=== PATIENT | male | born 1975 | race Caucasian/White ===

== ENCOUNTER 2018-11-25 05:48 | Inpatient (IN) ==
[2018-11-25] MEDS ORDERED: Morphine Sulfate Inj 8 MG/ML Vial IV.PUSH ONE (06:01)
[2018-11-25] MEDS ORDERED: Sod Chloride 0.9% Inj 1,000 ML IV.SIG ONE (06:01)
--- NOTE | 2018-11-25 06:09 | ED ---
HPI General Chief Complaint: Abdominal Pain Stated Complaint: Medical Time Seen by Provider: 11/25/18 05:57 Source: patient Mode of arrival: ambulatory Limitations: no limitations History of Present Illness HPI narrative: 43 yo M c/o abdominal pain for a few hours. pt has a hx of UC s/ p partial colectomy from 20 years prior. pt reports familiarity with current symptoms, essentially a partial bowel obstruction. pt believe potato skin ingestion provoked pain. varying from low residue diet provokes abdominal pain. + Flatus. No BM. No vomiting here. Pt reports typically IVF, nausea medication and pain medication help symptoms resolve. Pt reports he is very familiar with these episodes. Related Data Home Medications Medication Instructions Recorded Confirmed No Known Home Medications 11/25/18 11/25/18 Allergies Allergy/AdvReac Type Severity Reaction Status Date / Time No Known Allergies Allergy Verified 11/25/18 05:58 Review of Systems ROS: all other systems reviewed are negative [facility] Medical History Medical History Ulcerative colitis (Acute) Surgical History Surgical History Hx of colectomy (Acute) Hx of shoulder surgery (Acute) Social History Social History Substance History: No History of Abuse Smoking Status: Former smoker How Often Do You Have a Drink Containing Alcohol: 2 to 4 times a month [facility] within the Last 8 Weeks: No Recent Out of Country Travel within the Last 8 Weeks: No Immunization History Tetanus Immunization: Unsure Exam Narrative Exam Narrative: GENERAL: 43 yo M, WNWD, pleasant, NAD SKIN: Focused skin assessment warm/dry. HEAD: Atraumatic. Normocephalic. EYES: Pupils equal and round. No scleral icterus. No injection or drainage. ENT: No nasal bleeding or discharge. Mucous membranes pink and moist. NECK: Trachea midline. No JVD. CARDIOVASCULAR: Regular rate and rhythm. No murmur appreciated. RESPIRATORY: No accessory muscle use. Clear to auscultation. Breath sounds equal bilaterally. GASTROINTESTINAL: Soft. Minimal generalized TTP. MUSCULOSKELETAL: No obvious deformities. No clubbing. No cyanosis. No edema. NEUROLOGICAL: Awake and alert. No obvious cranial nerve deficits. Motor grossly within normal limits. Normal speech. PSYCHIATRIC: Appropriate mood and affect; insight and judgment normal. Course Initial Documented Vital Signs Temperature 98.7 F 11/25/18 05:51 Pulse Rate 82 11/25/18 05:51 Respiratory Rate 18 11/25/18 05:51 Blood Pressure 146/63 H 11/25/18 05:51 Pulse Oximetry 99 11/25/18 05:51 Last Documented Vital Signs Temperature 98.7 F 11/25/18 05:51 Pulse Rate 82 11/25/18 05:51 Respiratory Rate 18 11/25/18 05:51 Blood Pressure 146/63 H 11/25/18 05:51 Pulse Oximetry 99 11/25/18 05:51 Sign Out Sign Out Data: Patient Sign Out occurred on 11/25/18 at 07:22. Patient's care was discussed, and care was transferred from Dale Weiss MD to Brianna Pacheco MD. Sign Out Comment: Pt has hx UC with partial colectomy 20 years ago. 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 Pt arrives with abdominal pain and no BM. + Flatus. Pt reports IVF, pain medications and nausea medications typically work. Pt reports a few hours sometimes is enough sometimes longer. No vomiting today. Bloodwork sent upon arrival, NS, morphine and zofran started. Please reassess with disposition pending CT. Last updated by Dale Weiss MD at 11/25/18 06:56 Post-Handoff Eval: To me at 7 AM awaiting CAT scan and lab work. Lab work was fairly unremarkable with CAT scan is showing signs of bowel obstruction as well as fistula formation and questionable malignancy. At this point, case is discussed with family practice resident service for admission for further evaluation and treatment. Patient does not have any local doctors. Medical Decision Making MDM Narrative Medical Screen Exam Complete: Yes Emergency Medical Condition: Yes Lab Data Lab results reviewed: Yes I reviewed the patient's lab results. Result diagrams: 11/25/18 06:49 11/25/18 06:49 Lab Results 11/25/18 11/25/18 11/25/18 Range/Units 06:49 06:49 07:11 WBC 8.9 (4.0-11.0) th/mm3 RBC 4.29 L (4.50-5.90) mil/mm3 Hgb 13.4 (13.0-17.0) gm/dL Hct 39.3 (39.0-51.0) % MCV 91.5 (80.0-100.0) fL MCH 31.2 (27.0-34.0) pg MCHC 34.1 (32.0-36.0) % RDW 13.4 (11.6-17.2) % Plt Count 291 (150-450) th/mm3 MPV 7.7 (7.0-11.0) fL Neut % (Auto) 81.9 H (16.0-70.0) % Lymph % (Auto) 6.9 L (9.0-44.0) % Barren % (Auto) 11.0 H (0.0-8.0) % Eos % (Auto) 0.0 (0.0-4.0) % Baso % (Auto) 0.2 (0.0-2.0) % Neut # (Auto) 7.3 (1.8-7.7) th/mm3 Lymph # (Auto) 0.6 L (1.0-4.8) th/mm3 Barren # (Auto) 1.0 H (0.0-0.9) th/mm3 Eos # (Auto) 0.0 (0.0-0.4) th/mm3 Baso # (Auto) 0.0 (0.0-0.2) th/mm3 WBC Differential . Differential Comment Auto diff final Sodium 139 (136-145) meq/L Potassium 4.4 (3.5-5.1) meq/L Chloride 107 (98-107) meq/L Carbon Dioxide 24.6 (21.0-32.0) meq/L Anion Gap 7 (5-15) meq/L BUN 12 (7-18) mg/dL Creatinine 1.04 (0.60-1.30) mg/dL Estimated GFR 78 L (>89) mL/min Random Glucose 70 L (74-106) mg/dL Calcium 8.8 (8.5-10.1) mg/dL Magnesium 2.1 (1.5-2.5) mg/dL Total Bilirubin 0.8 (0.2-1.0) mg/dL AST 59 H (15-37) U/L ALT 57 (12-78) U/L Alkaline Phosphatase 48 (45-117) U/L Total Protein 7.6 (6.4-8.2) g/dL Albumin 3.6 (3.4-5.0) g/dL Lipase 86 (73-393) U/L Urine Color Yellow (Yellw/Straw) Urine Clarity Clear (Clear) Urine pH 5.0 (5.0-8.5) Ur Specific [place] 1.012 (1.002-1.035) Urine Protein Negative (Neg-Trace) mg/dL Urine Glucose (UA) Negative (Negative) mg/dL Urine Ketones Negative (Negative) mg/dL Urine Occult Blood Negative (Negative) Urine Nitrate Negative (Negative) Urine Bilirubin Negative (Negative) Urine Urobilinogen Less than 2 (Less than 2) mg/dL Ur Leukocyte Esterase Negative (Negative) Urine RBC Less than 1 (0-3) /hpf Urine WBC 1 (0-5) /hpf Hyaline Casts 4 (0-3) /lpf Urine Mucus Few H (Occasional) /lpf Micro UA Comment Culture not ind Ur Microscopic Review Not Reportable Urine Culture Comments Culture not ind Imaging Data Attestation: I personally reviewed and interpreted this imaging study as follows : Radiologist's impression: Abdomen/Pelvis CT 11/25/18 06:56 CONCLUSION: 1. 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 There is abnormal dilation of the distal ileum extending to the level of circumferential soft tissue thickening. Findings are concerning for possible malignancy within the region of the rectum. Small lymph nodes are seen within the mesentery. 2. Benign-appearing hepatic hemangiomas. Discharge Plan Discharge Disposition Patient Disposition: ED Admit(ED Internal Use Only) Discharge Condition Condition: Stable Discharge Details Anticipated Discharge Date: 11/25/18 Diagnosis: Bowel obstruction Physicians Team ED Provider: Brianna Pacheco Primary Care Provider: Primary Care PhysiciFreda Rxs /Orders / Referrals /Forms Prescriptions: No Action No Known Home Medications RF: 0 Status ED Status: With Doctor
[2018-11-25 07:02] LABS: Baso % (Auto) 0.2 % (0.0-2.0); Hematocrit 39.3 % (39.0-51.0); Hemoglobin 13.4 gm/dL (13.0-17.0); Lymph # (Auto) 0.6 th/mm3 (1.0-4.8); Lymph % (Auto) 6.9 % (9.0-44.0); Mean Corpuscular HGB Conc 34.1 % (32.0-36.0); Mean Corpuscular Hemoglobin 31.2 pg (27.0-34.0); Mean Corpuscular Volume 91.5 fL (80.0-100.0); Mean Platelet Volume 7.7 fL (7.0-11.0); Neut # (Auto) 7.3 th/mm3 (1.8-7.7); Neut % (Auto) 81.9 % (16.0-70.0); Platelet Count 291 th/mm3 (150-450); Red Blood Count 4.29 mil/mm3 (4.50-5.90); Red Cell Distribution Width 13.4 % (11.6-17.2); White Blood Count 8.9 th/mm3 (4.0-11.0)
[2018-11-25 07:22] LABS: Alkaline Phosphatase 48 U/L (45-117); Total Protein 7.6 g/dL (6.4-8.2)
[2018-11-25 07:23] LABS: Bilirubin,Urine Negative (Negative); Clarity,Urine Clear (Clear); Color,Urine Yellow (Yellw/Straw); Glucose,Urine (UA) Negative (Negative); Hyaline Casts,Urine 4 /lpf (0-3); Leukocyte Esterase,Urine Negative (Negative); Mucus,Urine Few /lpf (Occasional); Nitrite,Urine Negative (Negative); Specific Gravity,Urine 1.012 (1.002-1.035)
[2018-11-25 07:23] LABS: Alanine Aminotransferase 57 U/L (12-78); Albumin 3.6 g/dL (3.4-5.0); Anion Gap 7 meq/L (5-15); Aspartate Aminotransferase 59 U/L (15-37); Blood Urea Nitrogen 12 mg/dL (7-18); Calcium 8.8 mg/dL (8.5-10.1); Carbon Dioxide 24.6 meq/L (21.0-32.0); Chloride 107 meq/L (98-107); Glomerular Filtration Rate 78 mL/min (>89); Glucose,Random 70 mg/dL (74-106); Lipase 86 U/L (73-393); Magnesium 2.1 mg/dL (1.5-2.5); Potassium 4.4 meq/L (3.5-5.1); Sodium 139 meq/L (136-145)
--- NOTE | 2018-11-25 07:56 | CT ---
EXAM DATE: 11/25/2018 7:34 AM EST AGE/SEX: 43 years / Male INDICATIONS: Diffuse abdominal pain and constipation. Evaluate for obstruction. CLINICAL DATA: This is the patient's initial encounter. Patient reports that signs and symptoms have been present for 2 days and indicates a pain score of 7/10. MEDICAL/SURGICAL HISTORY: Ulcerative colitis. Colon resection. ORAL CONTRAST: No oral contrast ingested. RADIATION DOSE: 5.06 CTDI (mGy) COMPARISON: No prior exams available for comparison. TECHNIQUE: Multiple contiguous axial images were obtained through the abdomen and pelvis following b olus infusion of 97 ml Omnipaque 350 (iohexol) nonionic water-soluble contrast as a single exam dos e. No oral contrast ingested. Using automated exposure control and adjustment of the mA and/or kV ac cording to patient size, radiation dose was kept as low as reasonably achievable to obtain optimal di agnostic quality images. DICOM format image data is available electronically for review and comparis on. FINDINGS: Lower Lungs: The visualized lower lungs are clear. Liver: There are 2 low attenuating lesions identified within the liver, right lobe which demonstrate peripheral discontinuous enhancement consistent with benign hemangiomas. The liver is otherwise ian l in appearance and enhancement. Spleen: Homogeneous density without enlargement. Pancreas: Unremarkable without mass or calcification. Kidneys: Normal in size and shape. No evidence of mass or hydronephrosis. Adrenal Glands: Unremarkable. Aorta: The aorta and proximal iliac vessels are grossly unremarkable without aneurysmal dilation. Bowel/Mesentery: The patient is status post colonic resection with a suture anastomotic line involvi ng the distal portion of the small bowel at the level of the rectum. In this location there is circum ferential wall thickening measuring up to 2.3 cm in size with fluid filled and distended small bowel extending from this distal location to the upper abdomen. The jejunum and proximal ileum demonstrates normal caliber. There is a small focus of air identified within soft tissue attenuation extending fr om the level of the anus sphincter into the right ischio rectal fossa. Abdominal Wall: Intact. Retroperitoneum: There are mildly enlarged lymph nodes identified within the mesenteric fat Bladder: Contours are smooth. Reproductive Organs: No abnormal masses or calcifications seen. Inguinal: The inguinal region is unremarkable without evidence of adenopathy. Bony Structures: Unremarkable. CONCLUSION: 1. The patient is status post colon resection with abnormal circumferential soft tissue thickening i dentified within the region of the rectal sphincter and a small right-sided perirectal fistula extend ing into the right ischiorectal fossa. There is abnormal dilation of the distal ileum extending to th e level of circumferential soft tissue thickening. Findings are concerning for possible malignancy wi thin the region of the rectum. Small lymph nodes are seen within the mesentery. 2. Benign-appearing hepatic hemangiomas. Electronically signed by: Marge Lambert MD Board Certified Radiologist 11/25/2018 7:55 AM EST
[2018-11-25] MEDS ORDERED: Morphine Inj 4 MG/ML Vial IV.PUSH ONE (08:06)
--- NOTE | 2018-11-25 08:40 | P.HPFP ---
History of Present Illness Primary Care Physician: No Primary Care Physician <Ascencion Larkin Lenin - 11/26/18 18:57> No Primary Care Physician <Hazel Cueto - 11/25/18 08:40> History of Present Illness: 43 year old male with PMH UC presents for constipation since yesterday at noon and then started having abdominal pain last night at 9 pm. The ab pain was diffuse. Rates the pain a 10/10, stabbing pain, colicky pain. Did not try anything to relieve the pain. This pain has happened in the past, multiple times, last one about a month and a half ago and it was bowel obstruction. Has had 3 bowel obstructions in the past since he had his colon surgery in 1997 (partial colectomy). He also reports vomiting x2 at around 4 AM, and that's what prompted him to go to the hospital. Confirms hematemesis. Last flatus yesterday but has not had any episodes of flatus since being in the ED at 5 am today. Denies any changes in stool caliber or color before this event. Does not see a GI doctor because he is self pay. Dr Resendez in [place] did his surgery in 1997 and he moved down to [facility] in 2016. Has no PCP or GI follow up since his surgery. Received a dose of morphine in the ED which has helped the pain. PMH: UC PSH: Shoulder surgery. partial colectomy 1997 (does not have colostomy bag). A: NKDA Meds: None PSH: Lives in an apartment with his nephew. Denies smoking cigarettes currently but used to smoke years ago. Occasional alcohol use (once every 2-3 weeks). Denies any drugs use. Denies any changes in diet. Flew to [place] a couple a months ago and flew to [place] a month ago. Currently not sexually active. No history of HIV/Hep C/ STDs. No PCP. Fam Hx: Nephew has Chrons disease. ROS: Denies CP. Confirms SOB before the ambulance arrived but has resolved at this moment. Confirms night sweats for years where he is drenching his bed. Denies any weight loss. Denies any fevers, leg pain,dysuria. Last Colonoscopy years ago. <Hazel Cueto - 11/25/18 09:33> - Diagnosis (1) Abdominal pain (2) Ulcerative colitis (3) Hematemesis with nausea (4) DVT prophylaxis (5) Nutrition, metabolism, and development symptoms <Ascencion Larkin 11/26/18 18:57> (1) Abdominal pain (2) Ulcerative colitis (3) Hematemesis with nausea (4) Constipation (5) DVT prophylaxis (6) Nutrition, metabolism, and development symptoms <Hazel Cueto 11/25/18 09:34> Inpatient Certification: I certify that the inpatient services were ordered in accordance with Medicare regulations governing the order. This includes certification that hospital inpatient services are reasonable and necessary and in the case of services not specified as inpatient-only under 42 CFR 419.22(n), that they are appropriately provided as inpatient services in accordance to with the 2-midnight benchmark under 43 CFR 412.3(e) <Ascencion Larkin 11/26/18 18:57> I certify that the inpatient services were ordered in accordance with Medicare regulations governing the order. This includes certification that hospital inpatient services are reasonable and necessary and in the case of services not specified as inpatient-only under 42 CFR 419.22(n), that they are appropriately provided as inpatient services in accordance to with the 2-midnight benchmark under 43 CFR 412.3(e) <Hazel Cueto 11/25/18 08:40> Review of Systems All other systems reviewed negative except as stated in HPI <Hazel Cueto 11/25/18 09:33> PMFSH - History History Provided By: Patient, [employer] / EMT <Hazel Cueto 11/25/18 08 :40> - Medical History Medical History: Medical History (Last Updated 11/25/18 @ 05:56 by Keith Carreno) Ulcerative colitis <Ascencion Larkin 11/26/18 18:57> Medical History (Last Updated 11/25/18 @ 05:56 by Keith Carreno) Ulcerative colitis <Hazel Cueto 11/25/18 08:40> - Surgical History Surgical History: Surgical History (Last Updated 11/25/18 @ 05:56 by Keith Carreno) Hx of colectomy Hx of shoulder surgery <Ascencion Larkin 11/26/18 18:57> Surgical History (Last Updated 11/25/18 @ 05:56 by Keith Carreno) Hx of colectomy Hx of shoulder surgery <Hazel Cueto 11/25/18 08:40> - Tobacco History Smoking Status: Former smoker <Sasha DavisonHazel 11/25/18 08:40> - Alcohol History How Often Do You Have a Drink Containing Alcohol: 2 to 4 times a month <Hazel Cueto 11/25/18 08:40> - Substance Use History Substance History: No History of Abuse <Sasha DavisonHazel - 11/25/18 08:40> - Travel History Recent Travel in the [facility] Within the Last 8 Weeks: No <Hazel Cueto 11/01 08:40> Recent Travel Out of the Country Within the Last 8 Weeks: No <Sasha Davison Hazel - 11/25/18 08:40> - Immunization History Tetanus Immunization: Unsure <Hazel Cueto 11/25/18 08:40> Medications and Allergies Allergies Allergy/AdvReac Type Severity Reaction Status Date / Time No Known Allergies Allergy Verified 11/25/18 05:58 <Ascencion Larkin 11/26/18 18:57> Home Medications Medication Instructions Recorded Confirmed Type No Known Home Medications 11/25/18 11/25/18 History <Ascencion Larkin 11/26/18 18:57> Active Medications: Active Medications Acetaminophen (Tylenol) 650 mg PO Q4H PRN PRN Reason: Temp > 100.4 Acetaminophen (Tylenol) 650 mg PO Q6HR PRN PRN Reason: PAIN SCALE 1 TO 2 Al Hydroxide/Mg Hydroxide (Milk Of Magnesia Liq) 30 ml PO Q12H PRN PRN Reason: Mild Constipation Bisacodyl (Dulcolax Supp) 10 mg RECTAL DAILY PRN PRN Reason: SEVERE CONSITIPATION Last Admin: 11/26/18 07:05 Dose: 10 mg Sodium Chloride (Ns Inj) 1,000 mls @ 112 mls/hr IV.CONT .Q8H56M ROJELIO Last Infusion: 11/26/18 17:54 Dose: 0 mls/hr Lactulose (Lactulose Liq) 30 ml PO DAILY PRN PRN Reason: SEVERE CONSITIPATION Last Admin: 11/26/18 07:05 Dose: 30 ml Methylprednisolone Sodium Succinate (Solumedrol Inj) 40 mg IV.PUSH DAILY [facility] Last Admin: 11/26/18 12:58 Dose: 40 mg Morphine Sulfate (Morphine Inj) 2 mg IV.PUSH Q3H PRN PRN Reason: PAIN 6-10;IF UNABLE TO TAKE PO Last Admin: 11/26/18 17:10 Dose: 2 mg Morphine Sulfate (Morphine Inj) 1 mg IV.PUSH Q3H PRN PRN Reason: Pain scale 3-5 Morphine Sulfate (Morphine Inj) 1 mg IV.PUSH Q3H PRN PRN Reason: BREAKTHROUGH PAIN Naloxone HCl (Narcan Inj) 0.4 mg IV.PUSH UNSCH PRN PRN Reason: SEE LABEL COMMENTS Ondansetron HCl (Zofran Inj) 4 mg IV.PUSH Q6H PRN PRN Reason: NAUSEA OR VOMITING Senna/Docusate Sodium (Emelia-Colace) 1 tab PO BID [facility] Last Admin: 11/26/18 08:15 Dose: 1 tab Sennosides (Senokot) 17.2 mg PO Q12H PRN PRN Reason: Moderate Constipation Last Admin: 11/26/18 07:04 Dose: 17.2 mg Sodium Chloride (Ns Flush) 2 ml IV.FLUSH BID [facility] Last Admin: 11/26/18 08:14 Dose: Not Given Sodium Chloride (Ns Flush) 2 ml IV.FLUSH PRN PRN PRN Reason: FLUSH AFTER USING IV ACCESS <Ascencion Larkin - 11/26/18 18:57> Active Medications Sodium Chloride (Ns Flush) 2 ml IV.FLUSH PRN PRN PRN Reason: FLUSH AFTER USING IV ACCESS <Hazel Cueto - 11/25/18 08:40> Exam Vital signs: Vital Signs 11/25/18 19:20 11/25/18 23:24 11/26/18 08:00 Temperature 99.5 F 98.2 F 97.9 F Pulse Rate 69 75 72 Respiratory Rate 18 18 19 Blood Pressure 100/51 L 104/54 L 109/58 L Pulse Oximetry 100 98 100 11/26/18 10:04 11/26/18 12:00 11/26/18 13:00 Temperature 98.9 F Pulse Rate 87 Respiratory Rate 16 18 18 Blood Pressure 122/56 L Pulse Oximetry 97 11/26/18 16:00 11/26/18 17:12 Temperature 99.3 F Pulse Rate 90 Respiratory Rate 19 16 Blood Pressure 111/56 L Pulse Oximetry 97 Intake & Output 11/25/18 11/26/18 11/26/18 18:59 06:59 18:59 Intake Total 1000 / 1000 1000 / 1000 1000 / 1000 Balance 1000 / 1000 1000 / 1000 1000 / 1000 Weight 72.57 kg 67.4 kg Intake: IV 1000 / 1000 1000 / 1000 1000 / 1000 NS Inj 1,000 ML @ 112 mls/hr IV 1000 / 1000 1000 / 1000 .CONT .Q8H56M ROJELIO Rx#:[id number] NS Inj 1,000 ML @ Wide Open IV. 1000 / 1000 SIG BOLUS ONE Rx#:[id number] Other: # Voids 1 5 4 Date of Last Bowel Movement 11/23/18 11/25/18 11/26/18 # Bowel Movements 1 2 Weight On Admission 72.57 kg <Ascencion Larkin - 11/26/18 18:57> Vital Signs 11/25/18 05:51 Temperature 98.7 F Pulse Rate 82 Respiratory Rate 18 Blood Pressure 146/63 H Pulse Oximetry 99 Intake & Output 11/24/18 11/25/18 11/25/18 18:59 06:59 18:59 Weight 72.575 kg <Hazel Cueto - 11/25/18 08:40> Narrative: GENERAL: Middle-aged appearing male, lying comfortably in bed, no acute distress. SKIN: Warm and dry. HEAD: Normocephalic. EYES: No scleral icterus. No injection or drainage. NECK: Supple, trachea midline. No JVD or lymphadenopathy. CARDIOVASCULAR: Regular rate and rhythm without murmurs, gallops, or rubs. RESPIRATORY: Breath sounds equal bilaterally. No accessory muscle use. GASTROINTESTINAL: Abdomen soft, tenderness to palpation in all quadrants. Bowel sounds present in all quadrants. No dullness to percussion. MUSCULOSKELETAL: No cyanosis, or edema. BACK: Nontender without obvious deformity. No CVA tenderness. <Hazel Cueto - 11/25/18 09:03> Results - Labs Result diagrams: 11/26/18 05:03 11/26/18 05:03 <Ascencion Larkin - 11/26/18 18:57> Abnormal lab results 11/26/18 11/26/18 Range/Units 05:03 05:03 RBC 3.90 L (4.50-5.90) mil/mm3 Hgb 12.0 L (13.0-17.0) gm/dL Hct 36.3 L (39.0-51.0) % Neut % (Auto) 73.7 H (16.0-70.0) % Lymph % (Auto) 8.8 L (9.0-44.0) % [place] % (Auto) 16.4 H (0.0-8.0) % Lymph # (Auto) 0.6 L (1.0-4.8) th/mm3 [place] # (Auto) 1.1 H (0.0-0.9) th/mm3 Potassium 3.4 L D (3.5-5.1) meq/L Random Glucose 59 L (74-106) mg/dL Calcium 7.9 L D (8.5-10.1) mg/dL Total Bilirubin 1.4 H (0.2-1.0) mg/dL Alkaline Phosphatase 44 L (45-117) U/L Total Protein 6.2 L D (6.4-8.2) g/dL Albumin 2.9 L D (3.4-5.0) g/dL Short CBC 11/26/18 Range/Units 05:03 WBC 6.9 (4.0-11.0) th/mm3 Hgb 12.0 L (13.0-17.0) gm/dL Hct 36.3 L (39.0-51.0) % Plt Count 235 (150-450) th/mm3 [facility] 11/26/18 05:03 Sodium 140 Potassium 3.4 L D Chloride 106 Carbon Dioxide 24.3 BUN 8 Creatinine 0.87 Calcium 7.9 L D Liver Function 11/26/18 Range/Units 05:03 Total Bilirubin 1.4 H (0.2-1.0) mg/dL AST 30 (15-37) U/L ALT 35 (12-78) U/L Alkaline Phosphatase 44 L (45-117) U/L Albumin 2.9 L D (3.4-5.0) g/dL <Ascencion Larkin L - 11/26/18 18:57> Abnormal lab results 11/25/18 11/25/18 11/25/18 Range/Units 06:49 06:49 07:11 RBC 4.29 L (4.50-5.90) mil/mm3 Neut % (Auto) 81.9 H (16.0-70.0) % Lymph % (Auto) 6.9 L (9.0-44.0) % [place] % (Auto) 11.0 H (0.0-8.0) % Lymph # (Auto) 0.6 L (1.0-4.8) th/mm3 [place] # (Auto) 1.0 H (0.0-0.9) th/mm3 Estimated GFR 78 L (>89) mL/min Random Glucose 70 L (74-106) mg/dL AST 59 H (15-37) U/L Urine Mucus Few H (Occasional) /lpf Short CBC 11/25/18 Range/Units 06:49 WBC 8.9 (4.0-11.0) th/mm3 Hgb 13.4 (13.0-17.0) gm/dL Hct 39.3 (39.0-51.0) % Plt Count 291 (150-450) th/mm3 BMP 11/25/18 06:49 Sodium 139 Potassium 4.4 Chloride 107 Carbon Dioxide 24.6 BUN 12 Creatinine 1.04 Calcium 8.8 Liver Function 11/25/18 Range/Units 06:49 Total Bilirubin 0.8 (0.2-1.0) mg/dL AST 59 H (15-37) U/L ALT 57 (12-78) U/L Alkaline Phosphatase 48 (45-117) U/L Albumin 3.6 (3.4-5.0) g/dL Urine 11/25/18 Range/Units 07:11 Urine Color Yellow (Yellw/Straw) Urine Clarity Clear (Clear) Urine pH 5.0 (5.0-8.5) Ur Specific [place] 1.012 (1.002-1.035) Urine Protein Negative (Neg-Trace) mg/dL Urine Glucose (UA) Negative (Negative) mg/dL <Hazel Cueto - 11/25/18 08:40> - Imaging Impressions Abdomen/Pelvis CT 11/25/18 06:56 CONCLUSION: 1. 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 There is abnormal dilation of the distal ileum extending to the level of circumferential soft tissue thickening. Findings are concerning for possible malignancy within the region of the rectum. Small lymph nodes are seen within the mesentery. 2. Benign-appearing hepatic hemangiomas. <Eloisecristela SamanHazel - 11/25/18 08:40> Caprini VTE Risk Assessment Caprini VTE Risk Assessment: No/Low Risk (score <= 1) <Sasha DavisonHazel - 11/01 09:34> Caprini Risk Assessment Model: Point Value = 1 Point Value = 2 Point Value = 3 Point Value = 5 Age 41-60 Minor surgery BMI > 25 kg/m2 Swollen legs Varicose veins or History of unexplained or recurrent spontaneous Oral contraceptives or hormone replacement Sepsis (< 1 month) Serious lung disease, including pneumonia (< 1 month) Abnormal pulmonary function Acute myocardial infarction Congestive heart failure (< 1 month) History of inflammatory bowel disease Medical patient at bed rest Age 61-74 Arthroscopic surgery Major open surgery (> 45 min) Laparoscopic surgery (> 45 min) Malignancy Confined to bed (> 72 hours) Immobilizing plaster cast Central venous access Age >= 75 History of VTE Family history of VTE Factor V Leiden Prothrombin [id number] Lupus anticoagulant Anticardiolipin antibodies Elevated serum homocysteine Heparin-induced thrombocytopenia Other congenital or acquired thrombophilia Stroke (< 1 month) Elective arthroplasty Hip, pelvis, or leg fracture Acute spinal cord injury (< 1 month) <Ascencion Larkin - 11/26/18 18:57> Point Value = 1 Point Value = 2 Point Value = 3 Point Value = 5 Age 41-60 Minor surgery BMI > 25 kg/m2 Swollen legs Varicose veins or History of unexplained or recurrent spontaneous Oral contraceptives or hormone replacement Sepsis (< 1 month) Serious lung disease, including pneumonia (< 1 month) Abnormal pulmonary function Acute myocardial infarction Congestive heart failure (< 1 month) History of inflammatory bowel disease Medical patient at bed rest Age 61-74 Arthroscopic surgery Major open surgery (> 45 min) Laparoscopic surgery (> 45 min) Malignancy Confined to bed (> 72 hours) Immobilizing plaster cast Central venous access Age >= 75 History of VTE Family history of VTE Factor V Leiden Prothrombin [id number] Lupus anticoagulant Anticardiolipin antibodies Elevated serum homocysteine Heparin-induced thrombocytopenia Other congenital or acquired thrombophilia Stroke (< 1 month) Elective arthroplasty Hip, pelvis, or leg fracture Acute spinal cord injury (< 1 month) <Hazel Cueto - 11/25/18 08:40> Prophylaxis Regimen: Total Risk Factor Score Risk Level Prophylaxis Regimen 0-1 Low Early ambulation 2 Moderate Order ONE of the following: *Sequential Compression Device (SCD) *Heparin 5000 units SQ BID 3-4 Higher Order ONE of the following medications: *Heparin 5000 units SQ TID *Enoxaparin/Lovenox 40 mg SQ daily (WT < 150 kg, CrCl > 30 mL/min) *Enoxaparin/Lovenox 30 mg SQ daily (WT < 150 kg, CrCl > 10-29 mL/min) *Enoxaparin/Lovenox 30 mg SQ BID (WT < 150 kg, CrCl > 30 mL/min) AND/OR *Sequential Compression Device (SCD) 5 or more Highest Order ONE of the following medications: *Heparin 5000 units SQ TID (Preferred with Epidurals) *Enoxaparin/Lovenox 40 mg SQ daily (WT < 150 kg, CrCl > 30 mL/min) *Enoxaparin/Lovenox 30 mg SQ daily (WT < 150 kg, CrCl > 10-29 mL/min) *Enoxaparin/Lovenox 30 mg SQ BID (WT < 150 kg, CrCl > 30 mL/min) AND *Sequential Compression Device (SCD) <Ascencion Larkin - 11/26/18 18:57> Total Risk Factor Score Risk Level Prophylaxis Regimen 0-1 Low Early ambulation 2 Moderate Order ONE of the following: *Sequential Compression Device (SCD) *Heparin 5000 units SQ BID 3-4 Higher Order ONE of the following medications: *Heparin 5000 units SQ TID *Enoxaparin/Lovenox 40 mg SQ daily (WT < 150 kg, CrCl > 30 mL/min) *Enoxaparin/Lovenox 30 mg SQ daily (WT < 150 kg, CrCl > 10-29 mL/min) *Enoxaparin/Lovenox 30 mg SQ BID (WT < 150 kg, CrCl > 30 mL/min) AND/OR *Sequential Compression Device (SCD) 5 or more Highest Order ONE of the following medications: *Heparin 5000 units SQ TID (Preferred with Epidurals) *Enoxaparin/Lovenox 40 mg SQ daily (WT < 150 kg, CrCl > 30 mL/min) *Enoxaparin/Lovenox 30 mg SQ daily (WT < 150 kg, CrCl > 10-29 mL/min) *Enoxaparin/Lovenox 30 mg SQ BID (WT < 150 kg, CrCl > 30 mL/min) AND *Sequential Compression Device (SCD) <Eloisecristela Hazel Davison - 11/25/18 08:40> Assessment and Plan - Assessment (1) Abdominal pain Code(s): R10.9 - Unspecified abdominal pain Status: Acute (2) Ulcerative colitis Code(s): K51.90 - Ulcerative colitis, unspecified, without complications Status: Acute (3) Hematemesis with nausea Code(s): K92.0 - Hematemesis Status: Acute (4) DVT prophylaxis Status: Acute (5) Nutrition, metabolism, and development symptoms Code(s): R63.8 - Other symptoms and signs concerning food and fluid intake Status: Acute <TraeAscencion Lenin - 11/26/18 18:57> (1) Abdominal pain Code(s): R10.9 - Unspecified abdominal pain Status: Acute Plan: Patient with past medical history of ulcerative colitis status post partial colectomy in 1997 presents with 1 day of 10 out of 10 sharp, colicky, diffuse abdominal pain. History of multiple bowel obstructions x3. -No PCP or GI following. 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 Abnormal dilation of the distal ileum extending to the level of circumferential soft tissue thickening. Findings concerning for malignancy within the region of the rectum. -Hemoccult ordered. -GI consulted. Appreciate recommendations. -Oncology consulted. Appreciate recommendations -General surgery consulted. Appreciate recommendations. -Morphine pain scale and breakthrough. -Encouraged stool softeners. -Zofran for nausea vomiting. -CBC shows normal white count at 8.9 but high neutrophil predominant at 81.9. Vital signs stable. Continue to monitor in a.m. -UA unremarkable. (2) Ulcerative colitis Code(s): K51.90 - Ulcerative colitis, unspecified, without complications Status: Acute Plan: Currently not in any chronic medications. Gastroenterology consulted. Appreciate recommendations. (3) Hematemesis with nausea Code(s): K92.0 - Hematemesis Status: Acute Plan: Patient confirms hematemesis x2 overnight. No episodes since admission. Zofran every 4 for nausea and vomiting. Continue to monitor. Hemoglobin and hematocrit stable. Follow-up in a.m. (4) Constipation Code(s): K59.00 - Constipation, unspecified Status: Acute Plan: Encourage stool softeners. (5) DVT prophylaxis Status: Acute Plan: SCDs only. (6) Nutrition, metabolism, and development symptoms Code(s): R63.8 - Other symptoms and signs concerning food and fluid intake Status: Acute Plan: Fluids: Normal saline at 112 mils/hour. Electrolytes: Monitor and replete as needed. Diet: Currently n.p.o. <Hazel Cueto - 11/25/18 09:34> - Assessment and Plan Discussed Condition With: Dr. Ellis <Hazel Cueto - 11/25/18 09:32> - Attending Attestation The exam, history, and the medical decision-making described in the above note were completed with the assistance of the resident physician. I reviewed and agree with the findings presented. I attest that I had a [id number] encounter with the patient on the same day, and personally performed and documented my assessment and findings in the medical record. Patient with history of ulcerative colitis presenting with partial bowel obstruction. NG tube if needed, IV fluids, GI/surgery/oncology consultation (questionable mass around the rectum, although this could just be fistula related to his ulcerative colitis). Please see my documentation on the following day. <Ascencion Larkin - 11/26/18 18:57>
[2018-11-25] MEDS ORDERED: Naloxone Inj 0.4 MG/ML Vial IV.PUSH PRN (08:47)
[2018-11-25] MEDS ORDERED: Morphine Inj 4 MG/ML Vial IV.PUSH PRN ×3 (08:47→12:18)
[2018-11-25] MEDS ORDERED: Bisacodyl 10 MG Supp RECTAL PRN (08:47)
[2018-11-25] MEDS ORDERED: Acetaminophen 325 MG Tablet PO PRN ×2 (08:47)
[2018-11-25] MEDS: Morphine Inj 4 MG/ML Vial IV.PUSH SCH ×2 (09:15→12:15)
[2018-11-25] MEDS: Sod Chloride 0.9% Inj 1,000 ML IV.CONT SCH ×2 (09:49→18:26)
[2018-11-25] MEDS: Senna/Docusate Sodium 8.6/50 MG Tablet PO SCH ×2 (09:50→20:38)
[2018-11-25] MEDS: Morphine Inj 4 MG/ML Vial IV.PUSH PRN ×4 (10:25→21:23)
--- NOTE | 2018-11-25 14:27 | P.CONGI ---
History of Present Illness Consult date: 11/25/18 Consult reason: Bowel obstruction Chief complaint: Bowel obstruction History of Present Illness: This is a slim 43-year-old male who came to the hospital today 11/25/2018 with mid generalized abdominal pain which initiated yesterday around 12 noon. Patient states that he ate some potato skins and by 04 100 this morning he had nausea and vomiting and unrelieved abdominal pain according to patient and his record he has a history of ulcerative colitis since the age of 15 and is status post partial colectomy 20 years ago. Patient has had increased problems with small bowel obstructions more recently last hospital stay in [place] approximately 6 weeks ago. He states bowel obstruction relieved on its own and he was discharged approximately 12 hours later. Aggregating foods to patient's bowel obstruction has been broccoli, nuts, carrots, and now potato skins. Gastroenterology consult has been obtained to assist with patient's current symptoms and plan of care. Labs reviewed which show white count 8.9, hemoglobin 13.4, bilirubin 0.8, AST [address] scan shows dilated distal ileum, soft tissue thickening at the rectal sphincter and possible perirectal fistula, possibly rule out any malignancy. Patient denies any family history of colon cancer or any other bowel disease. No known EGD in the past, colonoscopy in the past but not recent. <Romelia Correa - Last Filed: 11/25/18 14:16> Review of Systems All other systems reviewed negative except as stated in HPI <Romelia Correa - Last Filed: 11/25/18 14:16> PMFSH - History History Provided By: Patient - Medical History Medical History: Medical History (Last Updated 11/25/18 @ 05:56 by Keith Carreno) Ulcerative colitis - Surgical History Surgical History: Surgical History (Last Updated 11/25/18 @ 05:56 by Keith Carreno) Hx of colectomy Hx of shoulder surgery - Tobacco History Second Hand Smoke Exposure: No Tobacco Use In Past 30 Days: No Smoking Status: Former smoker Tobacco Type: Cigarettes - Alcohol History How Often Do You Have a Drink Containing Alcohol: 2 to 4 times a month - Substance Use History Substance History: No History of Abuse - Travel History Recent Travel in the [place] Within the Last 8 Weeks: No Recent Travel Out of the Country Within the Last 8 Weeks: No - Immunization History Tetanus Immunization: Unsure Hx Influenza Vaccine This Season: No <Romelia Correa Alison - Last Filed: 11/25/18 14:16> - Medical History Medical History: Medical History (Last Updated 11/25/18 @ 05:56 by Keith Carreno) Ulcerative colitis - Surgical History Surgical History: Surgical History (Last Updated 11/25/18 @ 05:56 by Keith Carreno) Hx of colectomy Hx of shoulder surgery <Fidel Ang - Last Filed: 11/26/18 11:13> Medications and Allergies Active Medications: Active Medications Acetaminophen (Tylenol) 650 mg PO Q4H PRN PRN Reason: Temp > 100.4 Acetaminophen (Tylenol) 650 mg PO Q6HR PRN PRN Reason: PAIN SCALE 1 TO 2 Al Hydroxide/Mg Hydroxide (Milk Of Magnesia Liq) 30 ml PO Q12H PRN PRN Reason: Mild Constipation Bisacodyl (Dulcolax Supp) 10 mg RECTAL DAILY PRN PRN Reason: SEVERE CONSITIPATION Sodium Chloride (Ns Inj) 1,000 mls @ 112 mls/hr IV.CONT .Q8H56M [facility] Last Admin: 11/25/18 09:49 Dose: 112 mls/hr Lactulose (Lactulose Liq) 30 ml PO DAILY PRN PRN Reason: SEVERE CONSITIPATION Morphine Sulfate (Morphine Inj) 2 mg IV.PUSH Q3H PRN PRN Reason: PAIN 6-10;IF UNABLE TO TAKE PO Last Admin: 11/25/18 14:15 Dose: 2 mg Morphine Sulfate (Morphine Inj) 1 mg IV.PUSH Q3H PRN PRN Reason: Pain scale 3-5 Morphine Sulfate (Morphine Inj) 1 mg IV.PUSH Q3H PRN PRN Reason: BREAKTHROUGH PAIN Naloxone HCl (Narcan Inj) 0.4 mg IV.PUSH UNSCH PRN PRN Reason: SEE LABEL COMMENTS Ondansetron HCl (Zofran Inj) 4 mg IV.PUSH Q6H PRN PRN Reason: NAUSEA OR VOMITING Senna/Docusate Sodium (Emelia-Colace) 1 tab PO BID [facility] Last Admin: 11/25/18 09:50 Dose: 1 tab Sennosides (Senokot) 17.2 mg PO Q12H PRN PRN Reason: Moderate Constipation Sodium Chloride (Ns Flush) 2 ml IV.FLUSH BID [facility] Last Admin: 11/25/18 09:50 Dose: 2 ml Sodium Chloride (Ns Flush) 2 ml IV.FLUSH PRN PRN PRN Reason: FLUSH AFTER USING IV ACCESS <Romelia Correa - Last Filed: 11/25/18 14:16> Active Medications: Active Medications Acetaminophen (Tylenol) 650 mg PO Q4H PRN PRN Reason: Temp > 100.4 Acetaminophen (Tylenol) 650 mg PO Q6HR PRN PRN Reason: PAIN SCALE 1 TO 2 Al Hydroxide/Mg Hydroxide (Milk Of Magnesia Liq) 30 ml PO Q12H PRN PRN Reason: Mild Constipation Bisacodyl (Dulcolax Supp) 10 mg RECTAL DAILY PRN PRN Reason: SEVERE CONSITIPATION Last Admin: 11/26/18 07:05 Dose: 10 mg Sodium Chloride (Ns Inj) 1,000 mls @ 112 mls/hr IV.CONT .Q8H56M [facility] Last Admin: 11/26/18 10:10 Dose: 112 mls/hr Lactulose (Lactulose Liq) 30 ml PO DAILY PRN PRN Reason: SEVERE CONSITIPATION Last Admin: 11/26/18 07:05 Dose: 30 ml Morphine Sulfate (Morphine Inj) 2 mg IV.PUSH Q3H PRN PRN Reason: PAIN 6-10;IF UNABLE TO TAKE PO Last Admin: 11/26/18 10:02 Dose: 2 mg Morphine Sulfate (Morphine Inj) 1 mg IV.PUSH Q3H PRN PRN Reason: Pain scale 3-5 Morphine Sulfate (Morphine Inj) 1 mg IV.PUSH Q3H PRN PRN Reason: BREAKTHROUGH PAIN Naloxone HCl (Narcan Inj) 0.4 mg IV.PUSH UNSCH PRN PRN Reason: SEE LABEL COMMENTS Ondansetron HCl (Zofran Inj) 4 mg IV.PUSH Q6H PRN PRN Reason: NAUSEA OR VOMITING Senna/Docusate Sodium (Emelia-Colace) 1 tab PO BID [facility] Last Admin: 11/26/18 08:15 Dose: 1 tab Sennosides (Senokot) 17.2 mg PO Q12H PRN PRN Reason: Moderate Constipation Last Admin: 11/26/18 07:04 Dose: 17.2 mg Sodium Chloride (Ns Flush) 2 ml IV.FLUSH BID [facility] Last Admin: 11/26/18 08:14 Dose: Not Given Sodium Chloride (Ns Flush) 2 ml IV.FLUSH PRN PRN PRN Reason: FLUSH AFTER USING IV ACCESS <Fidel Ang - Last Filed: 11/26/18 11:13> Allergies Allergy/AdvReac Type Severity Reaction Status Date / Time No Known Allergies Allergy Verified 11/25/18 05:58 Home Medications Medication Instructions Recorded Confirmed Type No Known Home Medications 11/25/18 11/25/18 History Exam Vital signs: Vital Signs 11/25/18 05:51 11/25/18 07:11 11/25/18 09:54 Temperature 98.7 F Pulse Rate 82 86 Respiratory Rate 18 18 16 Blood Pressure 146/63 H 131/70 118/63 Pulse Oximetry 99 100 11/25/18 10:27 11/25/18 12:00 Temperature 97.6 F Pulse Rate 72 Respiratory Rate 18 20 Blood Pressure 99/58 L Pulse Oximetry 91 L Intake & Output 11/24/18 11/25/18 11/25/18 18:59 06:59 18:59 Intake Total 1000 / 1000 Balance 1000 / 1000 Weight 72.575 kg 72.57 kg Intake: IV 1000 / 1000 NS Inj 1,000 ML @ Wide Open IV. 1000 / 1000 SIG BOLUS ONE Rx#:[id number] Other: Date of Last Bowel Movement 11/23/18 Weight On Admission 72.57 kg - Constitutional mild distress, thin, cooperative - Routine HEENT Exam Head: Present: normocephalic ENT: Present: mucous membranes dry, oropharynx clear - Routine Neck Exam Present: supple - Routine Cardiovascular Exam Present: S1, S2 - Routine Abdominal Exam Present: normoactive bowel sounds (taut, mid abdominal and generalized abdominal cramping and sharp pains off and on, no obvious distention, flat) - Routine Neurological Exam Present: alert (Good historian) <Romelia Correa - Last Filed: 11/25/18 14:16> Vital signs: Vital Signs 11/25/18 12:00 11/25/18 14:17 11/25/18 15:56 Temperature 97.6 F 98.6 F Pulse Rate 72 62 Respiratory Rate 20 16 20 Blood Pressure 99/58 L 105/63 Pulse Oximetry 91 L 100 11/25/18 18:25 11/25/18 19:20 11/25/18 23:24 Temperature 99.5 F 98.2 F Pulse Rate 69 75 Respiratory Rate 16 18 18 Blood Pressure 100/51 L 104/54 L Pulse Oximetry 100 98 11/26/18 08:00 11/26/18 10:04 Temperature 97.9 F Pulse Rate 72 Respiratory Rate 19 16 Blood Pressure 109/58 L Pulse Oximetry 100 Intake & Output 11/25/18 11/26/18 11/26/18 18:59 06:59 18:59 Intake Total 1000 / 1000 1000 / 1000 1000 / 1000 Balance 1000 / 1000 1000 / 1000 1000 / 1000 Weight 72.57 kg 67.4 kg Intake: IV 1000 / 1000 1000 / 1000 1000 / 1000 NS Inj 1,000 ML @ 112 mls/hr IV 1000 / 1000 1000 / 1000 .CONT .Q8H56M [facility] Rx#:[id number] NS Inj 1,000 ML @ Wide Open IV. 1000 / 1000 SIG BOLUS ONE Rx#:[id number] Other: # Voids 1 5 Date of Last Bowel Movement 11/23/18 11/25/18 11/26/18 # Bowel Movements 1 Weight On Admission 72.57 kg <Fidel Ang A - Last Filed: 11/26/18 11:13> Results - Labs CBC & Chem 7: 11/25/18 06:49 11/25/18 06:49 Labs: Laboratory Results - last 24 hr 11/25/18 11/25/18 11/25/18 06:49 06:49 07:11 WBC 8.9 RBC 4.29 L Hgb 13.4 Hct 39.3 MCV 91.5 MCH 31.2 MCHC 34.1 RDW 13.4 Plt Count 291 MPV 7.7 Neut % (Auto) 81.9 H Lymph % (Auto) 6.9 L [place] % (Auto) 11.0 H Eos % (Auto) 0.0 Baso % (Auto) 0.2 Neut # (Auto) 7.3 Lymph # (Auto) 0.6 L [place] # (Auto) 1.0 H Eos # (Auto) 0.0 Baso # (Auto) 0.0 WBC Differential . Differential Comment Auto diff final Sodium 139 Potassium 4.4 Chloride 107 Carbon Dioxide 24.6 Anion Gap 7 BUN 12 Creatinine 1.04 Estimated GFR 78 L Random Glucose 70 L Calcium 8.8 Magnesium 2.1 Total Bilirubin 0.8 AST 59 H ALT 57 Alkaline Phosphatase 48 Total Protein 7.6 Albumin 3.6 Lipase 86 Urine Color Yellow Urine Clarity Clear Urine pH 5.0 Ur Specific [place] 1.012 Urine Protein Negative Urine Glucose (UA) Negative Urine Ketones Negative Urine Occult Blood Negative Urine Nitrate Negative Urine Bilirubin Negative Urine Urobilinogen Less than 2 Ur Leukocyte Esterase Negative Urine RBC Less than 1 Urine WBC 1 Hyaline Casts 4 Urine Mucus Few H Micro UA Comment Culture not ind Ur Microscopic Review Not Reportable Urine Culture Comments Culture not ind - Imaging Impressions Abdomen/Pelvis CT 11/25/18 06:56 CONCLUSION: 1. 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 There is abnormal dilation of the distal ileum extending to the level of circumferential soft tissue thickening. Findings are concerning for possible malignancy within the region of the rectum. Small lymph nodes are seen within the mesentery. 2. Benign-appearing hepatic hemangiomas. <Romelia Correa - Last Filed: 11/25/18 14:16> - Labs CBC & Chem 7: 11/26/18 05:03 11/26/18 05:03 Labs: Laboratory Results - last 24 hr 11/25/18 11/25/18 11/26/18 15:41 15:41 05:03 WBC 6.9 RBC 3.90 L Hgb 12.0 L Hct 36.3 L MCV 93.0 MCH 30.7 MCHC 33.0 RDW 13.5 Plt Count 235 MPV 7.7 Neut % (Auto) 73.7 H Lymph % (Auto) 8.8 L [place] % (Auto) 16.4 H Eos % (Auto) 0.4 Baso % (Auto) 0.7 Neut # (Auto) 5.1 Lymph # (Auto) 0.6 L [place] # (Auto) 1.1 H Eos # (Auto) 0.0 Baso # (Auto) 0.0 WBC Differential . Differential Comment Auto diff final Sodium Potassium Chloride Carbon Dioxide Anion Gap BUN Creatinine Estimated GFR Random Glucose Calcium Total Bilirubin AST ALT Alkaline Phosphatase Total Protein Albumin Tumor Marker AFP 7.4 CA 19-9 Antigen 1.5 11/26/18 05:03 WBC RBC Hgb Hct MCV MCH MCHC RDW Plt Count MPV Neut % (Auto) Lymph % (Auto) [place] % (Auto) Eos % (Auto) Baso % (Auto) Neut # (Auto) Lymph # (Auto) [place] # (Auto) Eos # (Auto) Baso # (Auto) WBC Differential Differential Comment Sodium 140 Potassium 3.4 L D Chloride 106 Carbon Dioxide 24.3 Anion Gap 10 BUN 8 Creatinine 0.87 Estimated GFR Greater than 89 Random Glucose 59 L Calcium 7.9 L D Total Bilirubin 1.4 H AST 30 ALT 35 Alkaline Phosphatase 44 L Total Protein 6.2 L D Albumin 2.9 L D Tumor Marker AFP CA 19-9 Antigen <Fidel Ang A - Last Filed: 11/26/18 11:13> Assessment and Plan - Plan mid generalized abdominal pain which initiated yesterday around 12 noon. Patient states that he ate some potato skins and by 04 100 this morning he had nausea and vomiting and unrelieved abdominal pain according to patient and his record he has a history of ulcerative colitis since the age of 15 and is status post partial colectomy 20 years ago. Patient has had increased problems with small bowel obstructions more recently last hospital stay in [place] approximately 6 weeks ago. He states bowel obstruction relieved on its own and he was discharged approximately 12 hours later. Aggregating foods to patient's bowel obstruction has been broccoli, nuts, carrots, and now potato skins. Gastroenterology consult has been obtained to assist with patient's current symptoms and plan of care. Labs reviewed which show white count 8.9, hemoglobin 13.4, bilirubin 0.8, AST [address] scan shows dilated distal ileum, soft tissue thickening at the rectal sphincter and possible perirectal fistula, possibly rule out any malignancy. Patient denies any family history of colon cancer or any other bowel disease. No known EGD in the past, colonoscopy in the past but not recent. Small bowel obstruction distal ileum, last SBO approximately 6 weeks ago in the [place] area after eating broccoli. This episode status post eating potato skins. Also has aggregating factors to nuts and carrots. 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 Generalized mid abdominal pain radiating fairly constant cramping off and on sharp pain secondary to #1 Nausea and vomiting approximately 2 hours before admission. Still having symptoms of nausea but no vomiting. Discussed placement of NG tube patient is requesting no NG for now unless his symptoms do not improve. Plan N.p.o. for now Small bowel follow-through series Continue IV fluids for now and pain management per attending Monitor labs Consider NG tube if nausea and vomiting persist Further recommendations to follow Patient was seen per myself and Dr. Ang, note was written on his behalf <Romelia Correa - Last Filed: 11/25/18 14:16> - Attending Attestation Agree with above assessment and plan. Plan as above, role out flare up of Crohn's disease. Check Fecal Calprotectin. IV Solumedrol and check SBFT. Thank you for the consult. <Fidel Ang - Last Filed: 11/26/18 11:13>
[2018-11-26] MEDS: Morphine Inj 4 MG/ML Vial IV.PUSH PRN ×7 (00:44→20:51)
[2018-11-26] MEDS: Sod Chloride 0.9% Inj 1,000 ML IV.CONT SCH ×3 (03:19→11:25)
[2018-11-26 05:42] LABS: Baso % (Auto) 0.7 % (0.0-2.0); Eos % (Auto) 0.4 % (0.0-4.0); Hematocrit 36.3 % (39.0-51.0); Lymph # (Auto) 0.6 th/mm3 (1.0-4.8); Lymph % (Auto) 8.8 % (9.0-44.0); Mean Corpuscular Hemoglobin 30.7 pg (27.0-34.0); Mean Platelet Volume 7.7 fL (7.0-11.0); Mono # (Auto) 1.1 th/mm3 (0.0-0.9); Mono % (Auto) 16.4 % (0.0-8.0); Neut # (Auto) 5.1 th/mm3 (1.8-7.7); Neut % (Auto) 73.7 % (16.0-70.0); Platelet Count 235 th/mm3 (150-450); Red Cell Distribution Width 13.5 % (11.6-17.2); White Blood Count 6.9 th/mm3 (4.0-11.0)
[2018-11-26 06:07] LABS: Alanine Aminotransferase 35 U/L (12-78); Albumin 2.9 g/dL (3.4-5.0); Alkaline Phosphatase 44 U/L (45-117); Anion Gap 10 meq/L (5-15); Aspartate Aminotransferase 30 U/L (15-37); Blood Urea Nitrogen 8 mg/dL (7-18); Calcium 7.9 mg/dL (8.5-10.1); Carbon Dioxide 24.3 meq/L (21.0-32.0); Chloride 106 meq/L (98-107); Glomerular Filtration Rate Greater Than 89 mL/min (>89); Glucose,Random 59 mg/dL (74-106); Potassium 3.4 meq/L (3.5-5.1); Sodium 140 meq/L (136-145); Total Protein 6.2 g/dL (6.4-8.2)
[2018-11-26] MEDS: Senna/Docusate Sodium 8.6/50 MG Tablet PO SCH ×2 (08:15→23:27)
--- NOTE | 2018-11-26 12:29 | P.PNFP ---
Subjective Interval history: Patient seen with the resident team this morning, Dr. Barlow and Dr. Cameron. He is resting in bed, in no distress. He reports that he did well overnight. Did not have any episodes of emesis overnight. Reports one bowel movement overnight. Abdominal discomfort present in the left lower quadrant, about the same as yesterday. No chest pain or shortness of breath. No calf tenderness or swelling. Otherwise feels well. Results - Labs Result diagrams: 11/26/18 05:03 11/26/18 05:03 Abnormal lab results 11/26/18 11/26/18 Range/Units 05:03 05:03 RBC 3.90 L (4.50-5.90) mil/mm3 Hgb 12.0 L (13.0-17.0) gm/dL Hct 36.3 L (39.0-51.0) % Neut % (Auto) 73.7 H (16.0-70.0) % Lymph % (Auto) 8.8 L (9.0-44.0) % Coleman % (Auto) 16.4 H (0.0-8.0) % Lymph # (Auto) 0.6 L (1.0-4.8) th/mm3 [place] # (Auto) 1.1 H (0.0-0.9) th/mm3 Potassium 3.4 L D (3.5-5.1) meq/L Random Glucose 59 L (74-106) mg/dL Calcium 7.9 L D (8.5-10.1) mg/dL Total Bilirubin 1.4 H (0.2-1.0) mg/dL Alkaline Phosphatase 44 L (45-117) U/L Total Protein 6.2 L D (6.4-8.2) g/dL Albumin 2.9 L D (3.4-5.0) g/dL Short CBC 11/26/18 Range/Units 05:03 WBC 6.9 (4.0-11.0) th/mm3 Hgb 12.0 L (13.0-17.0) gm/dL Hct 36.3 L (39.0-51.0) % Plt Count 235 (150-450) th/mm3 BMP 11/26/18 05:03 Sodium 140 Potassium 3.4 L D Chloride 106 Carbon Dioxide 24.3 BUN 8 Creatinine 0.87 Calcium 7.9 L D Liver Function 11/26/18 Range/Units 05:03 Total Bilirubin 1.4 H (0.2-1.0) mg/dL AST 30 (15-37) U/L ALT 35 (12-78) U/L Alkaline Phosphatase 44 L (45-117) U/L Albumin 2.9 L D (3.4-5.0) g/dL Physical Exam Vital signs: Vital Signs 11/25/18 14:17 11/25/18 15:56 11/25/18 18:25 Temperature 98.6 F Pulse Rate 62 Respiratory Rate 16 20 16 Blood Pressure 105/63 Pulse Oximetry 100 11/25/18 19:20 11/25/18 23:24 11/26/18 08:00 Temperature 99.5 F 98.2 F 97.9 F Pulse Rate 69 75 72 Respiratory Rate 18 18 19 Blood Pressure 100/51 L 104/54 L 109/58 L Pulse Oximetry 100 98 100 11/26/18 10:04 Temperature Pulse Rate Respiratory Rate 16 Blood Pressure Pulse Oximetry Intake & Output 11/25/18 11/26/18 11/26/18 18:59 06:59 18:59 Intake Total 1000 / 1000 1000 / 1000 1000 / 1000 Balance 1000 / 1000 1000 / 1000 1000 / 1000 Weight 72.57 kg 67.4 kg Intake: IV 1000 / 1000 1000 / 1000 1000 / 1000 NS Inj 1,000 ML @ 112 mls/hr IV 1000 / 1000 1000 / 1000 .CONT .Q8H56M [facility] Rx#:[id number] NS Inj 1,000 ML @ Wide Open IV. 1000 / 1000 SIG BOLUS ONE Rx#:[id number] Other: # Voids 1 5 Date of Last Bowel Movement 11/23/18 11/25/18 11/26/18 # Bowel Movements 1 Weight On Admission 72.57 kg Narrative: General: Resting in bed, no distress Skin: No rashes or lesions HEENT: normocephalic, no conjunctivitis, no nasal discharge Neck: Supple, no lymphadenopathy CV: RRR, no murmurs, rubs, gallops, regular pulses, normal cap refill Lungs: CTAB Abdomen: Tender to palpation in the mid and left lower quadrant, no rebound tenderness, no guarding, no masses palpated. Old healed scars from prior partial colectomy. Ext: No swelling Neuro: Awake, alert, no distress Psych: fair insight, normal reasoning Assessment and Plan - Assessment (1) Abdominal pain Code(s): R10.9 - Unspecified abdominal pain Status: Acute Plan: Patient with past medical history of ulcerative colitis status post partial colectomy in 1997 presents with 1 day of 10 out of 10 sharp, colicky, diffuse abdominal pain. History of multiple bowel obstructions x3, most recent was 6 weeks ago at a hospital in [place]. No history of requiring NG tube for obstructions. No PCP or GI. 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 Abnormal dilation of the distal ileum extending to the level of circumferential soft tissue thickening. Findings concerning for malignancy within the region of the rectum. Hemoccult negative. - Declines small bowel follow through - GI is consulted and on board - No nausea/vomiting overnight, had bowel movement, will proceed with clears. Advise small sips for now. - Oncology consulted given concern for malignancy on CT. May also just be part of his ulcerative colitis. Appreciate recommendations - General surgery consulted. Appreciate recommendations. - Fecal calprotectin - IV Solumedrol for UC - May benefit from 5-ASA in outpatient setting, needs good GI follow up - Morphine pain scale and breakthrough. - Bowel regimen - Zofran for nausea vomiting. (2) Ulcerative colitis Code(s): K51.90 - Ulcerative colitis, unspecified, without complications Status: Acute Plan: Currently not in any chronic medications. Gastroenterology consulted. Appreciate recommendations. IV Solumedrol for acute exacerbation Would benefit from 5-ASA in outpatient setting (3) Hematemesis with nausea Code(s): K92.0 - Hematemesis Status: Acute Plan: Patient confirms hematemesis x2 before admission No episodes since admission. Zofran every 4 for nausea and vomiting. Continue to monitor. Hemoglobin and hematocrit stable. Follow-up in a.m. (4) DVT prophylaxis Status: Acute Plan: SCDs only. (5) Nutrition, metabolism, and development symptoms Code(s): R63.8 - Other symptoms and signs concerning food and fluid intake Status: Acute Plan: Fluids: Normal saline at 112 mils/hour. Electrolytes: Monitor and replete as needed. Diet: Clear liquids, advance slowly as tolerated - Assessment and Plan Discussed Condition With: Seen and discussed with Dr. Cameron, Dr. Barlow Discharge Planning: Pending resolution of obstruction, and recommendations from specialists. Would benefit from close GI follow up in the outpatient setting for his ulcerative colitis.
[2018-11-26] MEDS: MethylPREDNISolone Sod Succinate Inj 40 MG/ML Vial IV.PUSH SCH (12:58)
--- NOTE | 2018-11-26 14:47 | P.PNGI ---
Subjective Interval history: Patient's resting in the bed appears more comfortable and states gradual improvement of abdominal pain, small BM this morning loose after suppository <Romelia Correa - Last Filed: 11/26/18 14:43> Physical Exam Vital signs: Vital Signs 11/25/18 15:56 11/25/18 18:25 11/25/18 19:20 Temperature 98.6 F 99.5 F Pulse Rate 62 69 Respiratory Rate 20 16 18 Blood Pressure 105/63 100/51 L Pulse Oximetry 100 100 11/25/18 23:24 11/26/18 08:00 11/26/18 10:04 Temperature 98.2 F 97.9 F Pulse Rate 75 72 Respiratory Rate 18 19 16 Blood Pressure 104/54 L 109/58 L Pulse Oximetry 98 100 11/26/18 12:00 11/26/18 13:00 Temperature 98.9 F Pulse Rate 87 Respiratory Rate 18 18 Blood Pressure 122/56 L Pulse Oximetry 97 Intake & Output 11/25/18 11/26/18 11/26/18 18:59 06:59 18:59 Intake Total 1000 / 1000 1000 / 1000 1000 / 1000 Balance 1000 / 1000 1000 / 1000 1000 / 1000 Weight 72.57 kg 67.4 kg Intake: IV 1000 / 1000 1000 / 1000 1000 / 1000 NS Inj 1,000 ML @ 112 mls/hr IV 1000 / 1000 1000 / 1000 .CONT .Q8H56M [facility] Rx#:[id number] NS Inj 1,000 ML @ Wide Open IV. 1000 / 1000 SIG BOLUS ONE Rx#:[id number] Other: # Voids 1 5 Date of Last Bowel Movement 11/23/18 11/25/18 11/26/18 # Bowel Movements 1 Weight On Admission 72.57 kg - Constitutional mild distress, cooperative - Routine HEENT Exam Head: Present: normocephalic ENT: Present: mucous membranes moist - Routine Neck Exam Present: supple - Routine Respiratory Exam Present: CTA bilaterally - Routine Cardiovascular Exam Present: S1, S2 - Routine Abdominal Exam Present: soft, normoactive bowel sounds (Soft bowel sounds continue, mild abdominal cramping gradual improved,) <Romelia Correa - Last Filed: 11/26/18 14:43> Vital signs: Vital Signs 11/25/18 19:20 11/25/18 23:24 11/26/18 08:00 Temperature 99.5 F 98.2 F 97.9 F Pulse Rate 69 75 72 Respiratory Rate 18 18 19 Blood Pressure 100/51 L 104/54 L 109/58 L Pulse Oximetry 100 98 100 11/26/18 10:04 11/26/18 12:00 11/26/18 13:00 Temperature 98.9 F Pulse Rate 87 Respiratory Rate 16 18 18 Blood Pressure 122/56 L Pulse Oximetry 97 11/26/18 16:00 11/26/18 17:12 Temperature 99.3 F Pulse Rate 90 Respiratory Rate 19 16 Blood Pressure 111/56 L Pulse Oximetry 97 Intake & Output 11/25/18 11/26/18 11/26/18 18:59 06:59 18:59 Intake Total 1000 / 1000 1000 / 1000 1000 / 1000 Balance 1000 / 1000 1000 / 1000 1000 / 1000 Weight 72.57 kg 67.4 kg Intake: IV 1000 / 1000 1000 / 1000 1000 / 1000 NS Inj 1,000 ML @ 112 mls/hr IV 1000 / 1000 1000 / 1000 .CONT .Q8H56M [facility] Rx#:[id number] NS Inj 1,000 ML @ Wide Open IV. 1000 / 1000 SIG BOLUS ONE Rx#:[id number] Other: # Voids 1 5 4 Date of Last Bowel Movement 11/23/18 11/25/18 11/26/18 # Bowel Movements 1 2 Weight On Admission 72.57 kg <Fidel Ang A - Last Filed: 11/26/18 18:52> Results - Labs CBC & Chem 7: 11/26/18 05:03 11/26/18 05:03 Laboratory Results - last 24 hr 11/25/18 11/25/18 11/26/18 15:41 15:41 05:03 WBC 6.9 RBC 3.90 L Hgb 12.0 L Hct 36.3 L MCV 93.0 MCH 30.7 MCHC 33.0 RDW 13.5 Plt Count 235 MPV 7.7 Neut % (Auto) 73.7 H Lymph % (Auto) 8.8 L Tal[place]ferro % (Auto) 16.4 H Eos % (Auto) 0.4 Baso % (Auto) 0.7 Neut # (Auto) 5.1 Lymph # (Auto) 0.6 L [place]ro # (Auto) 1.1 H Eos # (Auto) 0.0 Baso # (Auto) 0.0 WBC Differential . Differential Comment Auto diff final Sodium Potassium Chloride Carbon Dioxide Anion Gap BUN Creatinine Estimated GFR Random Glucose Calcium Total Bilirubin AST ALT Alkaline Phosphatase Total Protein Albumin Tumor Marker AFP 7.4 CA 19-9 Antigen 1.5 11/26/18 05:03 WBC RBC Hgb Hct MCV MCH MCHC RDW Plt Count MPV Neut % (Auto) Lymph % (Auto) Tal[place]ferro % (Auto) Eos % (Auto) Baso % (Auto) Neut # (Auto) Lymph # (Auto) [place]ferro # (Auto) Eos # (Auto) Baso # (Auto) WBC Differential Differential Comment Sodium 140 Potassium 3.4 L D Chloride 106 Carbon Dioxide 24.3 Anion Gap 10 BUN 8 Creatinine 0.87 Estimated GFR Greater than 89 Random Glucose 59 L Calcium 7.9 L D Total Bilirubin 1.4 H AST 30 ALT 35 Alkaline Phosphatase 44 L Total Protein 6.2 L D Albumin 2.9 L D Tumor Marker AFP CA 19-9 Antigen <Romelia Correa M - Last Filed: 11/26/18 14:43> - Labs CBC & Chem 7: 11/26/18 05:03 11/26/18 05:03 Laboratory Results - last 24 hr 11/26/18 11/26/18 05:03 05:03 WBC 6.9 RBC 3.90 L Hgb 12.0 L Hct 36.3 L MCV 93.0 MCH 30.7 MCHC 33.0 RDW 13.5 Plt Count 235 MPV 7.7 Neut % (Auto) 73.7 H Lymph % (Auto) 8.8 L [place]ferro % (Auto) 16.4 H Eos % (Auto) 0.4 Baso % (Auto) 0.7 Neut # (Auto) 5.1 Lymph # (Auto) 0.6 L [place]ro # (Auto) 1.1 H Eos # (Auto) 0.0 Baso # (Auto) 0.0 WBC Differential . Differential Comment Auto diff final Sodium 140 Potassium 3.4 L D Chloride 106 Carbon Dioxide 24.3 Anion Gap 10 BUN 8 Creatinine 0.87 Estimated GFR Greater than 89 Random Glucose 59 L Calcium 7.9 L D Total Bilirubin 1.4 H AST 30 ALT 35 Alkaline Phosphatase 44 L Total Protein 6.2 L D Albumin 2.9 L D <Fidel Ang - Last Filed: 11/26/18 18:52> Assessment and Plan - Plan mid generalized abdominal pain which initiated yesterday around 12 noon. Patient states that he ate some potato skins and by 04 100 this morning he had nausea and vomiting and unrelieved abdominal pain according to patient and his record he has a history of ulcerative colitis since the age of 15 and is status post partial colectomy 20 years ago. Patient has had increased problems with small bowel obstructions more recently last hospital stay in [place] approximately 6 weeks ago. He states bowel obstruction relieved on its own and he was discharged approximately 12 hours later. Aggregating foods to patient's bowel obstruction has been broccoli, nuts, carrots, and now potato skins. Gastroenterology consult has been obtained to assist with patient's current symptoms and plan of care. Labs reviewed which show white count 8.9, hemoglobin 13.4, bilirubin 0.8, AST [address] scan shows dilated distal ileum, soft tissue thickening at the rectal sphincter and possible perirectal fistula, possibly rule out any malignancy. Patient denies any family history of colon cancer or any other bowel disease. No known EGD in the past, colonoscopy in the past but not recent. Small bowel obstruction distal ileum, last SBO approximately 6 weeks ago in the [place] area after eating broccoli. This episode status post eating potato skins. Also has aggregating factors to nuts and carrots. 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 Generalized mid abdominal pain radiating fairly constant cramping off and on sharp pain secondary to #1 Nausea and vomiting approximately 2 hours before admission. Still having symptoms of nausea but no vomiting. Discussed placement of NG tube patient is requesting no NG for now unless his symptoms do not improve. 11/26/2018 patient is showing gradual improvement of SBO, small loose BM this a.m. after suppository, less abdominal cramping, still n.p.o. but okay for a few ice chips if patient requires. Refused small bowel follow-through x-ray yesterday, states he is getting better Plan Diet, n.p.o. but okay from a GI standpoint to advance based on patient's improvement Supportive Monitor lab, once patient is stable may discharge and follow-up outpatient from a GI standpoint Patient was seen per myself and Dr. Ang, note was written on his behalf <Romelia Correa - Last Filed: 11/26/18 14:43> - Attending Attestation Agree with above assessment and plan. Will need close out patient follow up and colonoscopy , currently refusing to stay any longer in the hospital. <Fidel Ang - Last Filed: 11/26/18 18:52>
[2018-11-27] MEDS: Morphine Inj 4 MG/ML Vial IV.PUSH PRN ×8 (01:04→23:41)
[2018-11-27] MEDS: Sod Chloride 0.9% Inj 1,000 ML IV.CONT SCH ×4 (01:06→23:43)
[2018-11-27 06:19] LABS: Hematocrit 39.1 % (39.0-51.0); Hemoglobin 13.4 gm/dL (13.0-17.0); Mean Corpuscular HGB Conc 34.2 % (32.0-36.0); Mean Corpuscular Hemoglobin 31.4 pg (27.0-34.0); Platelet Count 316 th/mm3 (150-450); Red Blood Count 4.25 mil/mm3 (4.50-5.90); Red Cell Distribution Width 13.5 % (11.6-17.2); White Blood Count 10.3 th/mm3 (4.0-11.0)
[2018-11-27 06:45] LABS: Calcium 8.7 mg/dL (8.5-10.1); Carbon Dioxide 31.2 meq/L (21.0-32.0); Potassium 3.9 meq/L (3.5-5.1)
[2018-11-27] MEDS: MethylPREDNISolone Sod Succinate Inj 40 MG/ML Vial IV.PUSH SCH (07:59)
[2018-11-27] MEDS: Senna/Docusate Sodium 8.6/50 MG Tablet PO SCH (08:00)
--- NOTE | 2018-11-27 09:22 | P.PNGI ---
Subjective Interval history: Patient is resting in bed. He states that he had a cheeseburger yesterday for dinner. Did not tolerate this well. He has had bowel movements this morning, feels that he is incompletely emptying. He denies any nausea or vomiting. Continued abdominal pain, worse on the left side but present on the right side as well. Physical Exam Vital signs: Vital Signs 11/26/18 10:04 11/26/18 12:00 11/26/18 13:00 Temperature 98.9 F Pulse Rate 87 Respiratory Rate 16 18 18 Blood Pressure 122/56 L Pulse Oximetry 97 11/26/18 16:00 11/26/18 17:12 11/26/18 20:32 Temperature 99.3 F 98.3 F Pulse Rate 90 76 Respiratory Rate 19 16 18 Blood Pressure 111/56 L 117/53 L Pulse Oximetry 97 98 11/27/18 00:14 11/27/18 04:04 11/27/18 08:00 Temperature 97.8 F 98 F 98.2 F Pulse Rate 76 69 88 Respiratory Rate 20 18 16 Blood Pressure 127/62 105/57 L 113/58 L Pulse Oximetry 100 97 98 Intake & Output 11/26/18 11/27/18 11/27/18 18:59 06:59 18:59 Intake Total 1000 / 1000 960 / 960 Balance 1000 / 1000 960 / 960 Intake: IV 1000 / 1000 NS Inj 1,000 ML @ 112 mls/hr IV 1000 / 1000 .CONT .Q8H56M [facility]S [facility]CLUDE 234 BEDS AT [facility] Rx#:[id number] Oral 960 / 960 Other: # Voids 4 5 Date of Last Bowel Movement 11/26/18 11/26/18 # Bowel Movements 2 2 - Constitutional no acute distress - Routine HEENT Exam Head: Present: normocephalic, atraumatic - Routine Respiratory Exam Absent: accessory muscle use - Routine Abdominal Exam Present: soft, normoactive bowel sounds, tenderness. Absent: distended - Routine Skin Exam Present: dry, warm - Routine Neurological Exam Present: alert, oriented X3 Results - Labs CBC & Chem 7: 11/27/18 05:39 11/27/18 05:39 Laboratory Results - last 24 hr 11/27/18 11/27/18 05:39 05:39 WBC 10.3 RBC 4.25 L Hgb 13.4 Hct 39.1 MCV 92.0 MCH 31.4 MCHC 34.2 RDW 13.5 Plt Count 316 D MPV 8.0 Sodium 141 Potassium 3.9 Chloride 105 Carbon Dioxide 31.2 Anion Gap 5 BUN 8 Creatinine 0.96 Estimated GFR 86 L Random Glucose 108 H Calcium 8.7 D Assessment and Plan - Plan Assessment Ulcerative colitis status post partial colectomy approximately 20 years ago. Patient reports that he has not been on any treatment for the UC since that time. He has been having recurrent bowel obstructions, states that they have always resolved without any surgical intervention. Patient presented to the ER 2 days ago with complaints of nausea, vomiting and abdominal pain. Patient has been having diarrhea since admission, denies any hematochezia or melena. Initially yesterday patient was feeling better and refused small bowel follow-through. 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 There is abnormal dilatation of the distal ileum extending to the level of circumferential soft tissue thickening. Findings are concerning for possible malignancy within the region of the rectum. Small lymph nodes are seen within the mesentery. Benign-appearing hepatic hemangiomas. Pt is self pay and will likely not be compliant with follow ups, discussed this with him and he is agreeable to stay Plan Decrease diet to clear liquids Flex sigmoidoscopy tomorrow- will not tolerate prep for colonoscopy Obtain consent N.p.o. after midnight Soapsuds enema x2 in a.m. CEA IV steroids Analgesics as needed Antiemetics PRN IV fluids Further recommendations to follow This patient is been seen and examined by myself and Dr. Almonte and this note is written on his behalf
--- NOTE | 2018-11-27 10:24 | P.PNFP ---
Subjective Interval history: Patient seen and examined at bedside this morning. He complains of abdominal pain that started this morning after he ate a cheeseburger yesterday. Still confirms having bowel movements but believes that he is still obstructed. Still believes that he has stool in his intestines that he cannot defecate. Describes abdominal pain as cramping in nature. He denies any chest pain, shortness of breath, problems with urination , leg pain. All questions were answered at bedside. <Hazel Cueto - 11/27/18 10:24> Results - Labs Result diagrams: 11/27/18 05:39 11/27/18 05:39 <Ascencion Larkin - 11/27/18 16:09> Abnormal lab results 11/27/18 11/27/18 Range/Units 05:39 05:39 RBC 4.25 L (4.50-5.90) mil/mm3 Estimated GFR 86 L (>89) mL/min Random Glucose 108 H (74-106) mg/dL Short CBC 11/27/18 Range/Units 05:39 WBC 10.3 (4.0-11.0) th/mm3 Hgb 13.4 (13.0-17.0) gm/dL Hct 39.1 (39.0-51.0) % Plt Count 316 D (150-450) th/mm3 [facility] 11/27/18 05:39 Sodium 141 Potassium 3.9 Chloride 105 Carbon Dioxide 31.2 BUN 8 Creatinine 0.96 Calcium 8.7 D <Ascencion Larkin - 11/27/18 16:09> Abnormal lab results 11/27/18 11/27/18 Range/Units 05:39 05:39 RBC 4.25 L (4.50-5.90) mil/mm3 Estimated GFR 86 L (>89) mL/min Random Glucose 108 H (74-106) mg/dL Short CBC 11/27/18 Range/Units 05:39 WBC 10.3 (4.0-11.0) th/mm3 Hgb 13.4 (13.0-17.0) gm/dL Hct 39.1 (39.0-51.0) % Plt Count 316 D (150-450) th/mm3 [facility] 11/27/18 05:39 Sodium 141 Potassium 3.9 Chloride 105 Carbon Dioxide 31.2 BUN 8 Creatinine 0.96 Calcium 8.7 D <Hazel Cueto - 11/27/18 10:24> Physical Exam Vital signs: Vital Signs 11/26/18 17:12 11/26/18 20:32 11/27/18 00:14 Temperature 98.3 F 97.8 F Pulse Rate 76 76 Respiratory Rate 16 18 20 Blood Pressure 117/53 L 127/62 Pulse Oximetry 98 100 11/27/18 04:04 11/27/18 08:00 11/27/18 12:00 Temperature 98 F 98.2 F 98.1 F Pulse Rate 69 88 80 Respiratory Rate 18 16 16 Blood Pressure 105/57 L 113/58 L 118/56 L Pulse Oximetry 97 98 96 11/27/18 14:11 Temperature Pulse Rate Respiratory Rate 16 Blood Pressure Pulse Oximetry Intake & Output 11/26/18 11/27/18 11/27/18 18:59 06:59 18:59 Intake Total 1000 / 1000 960 / 960 1550 / 1550 Balance 1000 / 1000 960 / 960 1550 / 1550 Intake: IV 1000 / 1000 1550 / 1550 NS Inj 1,000 ML @ 112 mls/hr IV 1000 / 1000 1550 / 1550 .CONT .Q8H56M [facility] Rx#:[id number] Oral 960 / 960 Other: # Voids 4 5 Date of Last Bowel Movement 11/26/18 11/26/18 11/27/18 # Bowel Movements 2 2 <Ascencion Larkin - 11/27/18 16:09> Vital Signs 11/26/18 12:00 11/26/18 13:00 11/26/18 16:00 Temperature 98.9 F 99.3 F Pulse Rate 87 90 Respiratory Rate 18 18 19 Blood Pressure 122/56 L 111/56 L Pulse Oximetry 97 97 11/26/18 17:12 11/26/18 20:32 11/27/18 00:14 Temperature 98.3 F 97.8 F Pulse Rate 76 76 Respiratory Rate 16 18 20 Blood Pressure 117/53 L 127/62 Pulse Oximetry 98 100 11/27/18 04:04 11/27/18 08:00 Temperature 98 F 98.2 F Pulse Rate 69 88 Respiratory Rate 18 16 Blood Pressure 105/57 L 113/58 L Pulse Oximetry 97 98 Intake & Output 11/26/18 11/27/18 11/27/18 18:59 06:59 18:59 Intake Total 1000 / 1000 960 / 960 550 / 550 Balance 1000 / 1000 960 / 960 550 / 550 Intake: IV 1000 / 1000 550 / 550 NS Inj 1,000 ML @ 112 mls/hr IV 1000 / 1000 550 / 550 .CONT .Q8H56M [facility] Rx#:[id number] Oral 960 / 960 Other: # Voids 4 5 Date of Last Bowel Movement 11/26/18 11/26/18 11/27/18 # Bowel Movements 2 2 <Hazel Cueto - 11/27/18 10:24> Narrative: General: Resting in bed, no distress Skin: No rashes or lesions HEENT: normocephalic, no conjunctivitis, no nasal discharge Neck: Supple, no lymphadenopathy CV: RRR, no murmurs, rubs, gallops, regular pulses, normal cap refill Lungs: CTAB Abdomen: Tender to palpation throughout all quadrants, no rebound tenderness, no guarding, no masses palpated. Old healed scars from prior partial colectomy. Ext: No swelling Neuro: Awake, alert, no distress Psych: fair insight, normal reasoning <Hazel Cueto - 11/27/18 10:24> Assessment and Plan - Assessment (1) Abdominal pain Code(s): R10.9 - Unspecified abdominal pain Status: Acute (2) Ulcerative colitis Code(s): K51.90 - Ulcerative colitis, unspecified, without complications Status: Acute (3) Hematemesis with nausea Code(s): K92.0 - Hematemesis Status: Acute (4) DVT prophylaxis Status: Acute (5) Nutrition, metabolism, and development symptoms Code(s): R63.8 - Other symptoms and signs concerning food and fluid intake Status: Acute <Ascencion Larkin Lenin - 11/27/18 16:09> (1) Abdominal pain Code(s): R10.9 - Unspecified abdominal pain Status: Acute Plan: Patient with past medical history of ulcerative colitis status post partial colectomy in 1997 presents with 1 day of 10 out of 10 sharp, colicky, diffuse abdominal pain. History of multiple bowel obstructions x3, most recent was 6 weeks ago at a hospital in [place]. No history of requiring NG tube for obstructions. No PCP or GI. 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 Abnormal dilation of the distal ileum extending to the level of circumferential soft tissue thickening. Findings concerning for malignancy within the region of the rectum. - Declines small bowel follow through - GI is consulted and on board: Recommend flex sigmoidoscopy. Patient consented and will have procedure done tomorrow. - No nausea/vomiting overnight, had bowel movement but still irregular per patient. Flex sigmoidoscopy prep tomorrow. - Oncology consulted given concern for malignancy on CT. May also just be part of his ulcerative colitis. Will await results from flex sig. - General surgery consulted. Appreciate recommendations. - Fecal calprotectin/ CEA/Hemoccult ordered. - IV Solumedrol for UC - May benefit from 5-ASA in outpatient setting, needs good GI follow up - Morphine pain scale and breakthrough. - Bowel regimen - Zofran for nausea vomiting. (2) Ulcerative colitis Code(s): K51.90 - Ulcerative colitis, unspecified, without complications Status: Acute Plan: Currently not in any chronic medications. Gastroenterology consulted. Appreciate recommendations. IV Solumedrol for acute exacerbation Would benefit from 5-ASA in outpatient setting (3) Hematemesis with nausea Code(s): K92.0 - Hematemesis Status: Acute Plan: Patient confirms hematemesis x2 before admission No episodes since admission. Zofran every 4 for nausea and vomiting. Continue to monitor. Hemoglobin and hematocrit stable. Follow-up in a.m. (4) DVT prophylaxis Status: Acute Plan: SCDs only. (5) Nutrition, metabolism, and development symptoms Code(s): R63.8 - Other symptoms and signs concerning food and fluid intake Status: Acute Plan: Fluids: Normal saline at 112 mls/hour. Electrolytes: Monitor and replete as needed. Diet: Clear liquids. NPO tomorrow for procedure. <Hazel Cueto - 11/27/18 10:26> - Attending Attestation The exam, history, and the medical decision-making described in the above note were completed with the assistance of the resident physician. I reviewed and agree with the findings presented. I attest that I had a [id number] encounter with the patient on the same day, and personally performed and documented my assessment and findings in the medical record. I evaluated patient this afternoon. He is lying in bed in no distress. He continues to have crampy pain in the left lower quadrant. No rebound tenderness or guarding. Bowel sounds improving. Abdomen is not distended. No nausea/ vomiting. Planning for enema and flex sig in the morning. Will need UC treatment after discharge. <Ascencion Larkin - 11/27/18 16:09>
[2018-11-28] MEDS ORDERED: Chlorhexidine Gluconate 2% 1 Pack (2 Cloths) TOPICAL ONE (01:02)
[2018-11-28] MEDS ORDERED: Metoprolol Tartrate 25 MG Tablet PO ONE (01:02)
[2018-11-28] MEDS ORDERED: Sodium Chlor 0.9% Inj 500 ML IV.SIG SCH (02:00)
[2018-11-28] MEDS: Morphine Inj 4 MG/ML Vial IV.PUSH PRN ×4 (03:56→19:02)
[2018-11-28] MEDS: Senna/Docusate Sodium 8.6/50 MG Tablet PO SCH ×2 (04:09→08:10)
[2018-11-28] MEDS: Sod Chloride 0.9% Inj 1,000 ML IV.CONT SCH ×2 (07:50→18:03)
[2018-11-28] MEDS: MethylPREDNISolone Sod Succinate Inj 40 MG/ML Vial IV.PUSH SCH (08:09)
[2018-11-28 09:33] LABS: Baso % (Auto) 0.5 % (0.0-2.0); Eos % (Auto) 0.5 % (0.0-4.0); Hematocrit 33.5 % (39.0-51.0); Hemoglobin 11.3 gm/dL (13.0-17.0); Lymph # (Auto) 0.9 th/mm3 (1.0-4.8); Mean Corpuscular HGB Conc 33.8 % (32.0-36.0); Mean Corpuscular Hemoglobin 31.3 pg (27.0-34.0); Mean Corpuscular Volume 92.7 fL (80.0-100.0); Mean Platelet Volume 8.1 fL (7.0-11.0); Mono # (Auto) 0.6 th/mm3 (0.0-0.9); Mono % (Auto) 13.2 % (0.0-8.0); Neut % (Auto) 65.8 % (16.0-70.0); Platelet Count 211 th/mm3 (150-450); Red Blood Count 3.61 mil/mm3 (4.50-5.90); Red Cell Distribution Width 13.4 % (11.6-17.2); White Blood Count 4.6 th/mm3 (4.0-11.0)
--- NOTE | 2018-11-28 09:40 | P.PNFP ---
Subjective Interval history: Patient seen and examined at bedside this morning. Still complaining of diffuse abdominal pain. Confirms having bowel movements. Awaiting procedure this morning. He denies any chest pain, shortness of breath, problems with urination or leg pain today. <EloiselaurieHazel Rivers - 11/28/18 10:09> Results - Labs Result diagrams: 11/28/18 06:13 11/28/18 06:13 <Ascencion Larkin - 11/28/18 12:13> Abnormal lab results 11/28/18 11/28/18 Range/Units 06:13 06:13 RBC 3.61 L (4.50-5.90) mil/mm3 Hgb 11.3 L D (13.0-17.0) gm/dL Hct 33.5 L (39.0-51.0) % [place] % (Auto) 13.2 H (0.0-8.0) % Lymph # (Auto) 0.9 L (1.0-4.8) th/mm3 Potassium 3.2 L (3.5-5.1) meq/L Chloride 108 H (98-107) meq/L BUN 3 L (7-18) mg/dL Random Glucose 66 L (74-106) mg/dL Calcium 8.1 L (8.5-10.1) mg/dL Alkaline Phosphatase 35 L (45-117) U/L Total Protein 5.5 L D (6.4-8.2) g/dL Albumin 2.6 L (3.4-5.0) g/dL Short CBC 11/28/18 Range/Units 06:13 WBC 4.6 (4.0-11.0) th/mm3 Hgb 11.3 L D (13.0-17.0) gm/dL Hct 33.5 L (39.0-51.0) % Plt Count 211 D (150-450) th/mm3 BMP 11/28/18 06:13 Sodium 143 Potassium 3.2 L Chloride 108 H Carbon Dioxide 26.1 BUN 3 L Creatinine 0.75 Calcium 8.1 L Liver Function 11/28/18 Range/Units 06:13 Total Bilirubin 0.5 (0.2-1.0) mg/dL AST 33 (15-37) U/L ALT 29 (12-78) U/L Alkaline Phosphatase 35 L (45-117) U/L Albumin 2.6 L (3.4-5.0) g/dL <Ascencion Larkin L - 11/28/18 12:13> Physical Exam Vital signs: Vital Signs 11/27/18 14:11 11/27/18 17:15 11/27/18 20:38 Temperature 98.6 F Pulse Rate 77 Respiratory Rate 16 16 20 Blood Pressure 123/63 Pulse Oximetry 98 11/28/18 00:31 11/28/18 06:12 11/28/18 07:30 Temperature 98.0 F 97.8 F 97.7 F Pulse Rate 76 67 78 Respiratory Rate 20 20 20 Blood Pressure 106/65 112/55 L 97/52 L Pulse Oximetry 98 98 96 11/28/18 08:10 11/28/18 10:19 11/28/18 11:55 Temperature 97.9 F Pulse Rate 83 Respiratory Rate 16 18 16 Blood Pressure 114/59 L Pulse Oximetry 99 Intake & Output 11/27/18 11/28/18 11/28/18 18:59 06:59 18:59 Intake Total 1550 / 1550 1000 / 1000 1150 / 1150 Balance 1550 / 1550 1000 / 1000 1150 / 1150 Intake: IV 1550 / 1550 1000 / 1000 1000 / 1000 NS Inj 1,000 ML @ 112 mls/hr IV 1550 / 1550 1000 / 1000 1000 / 1000 .CONT .Q8H56M [facility] Rx#:[id number] Anesthesia Amount 150 / 150 Other: # Voids 4 Date of Last Bowel Movement 11/27/18 11/27/18 11/27/18 # Bowel Movements 1 <TraeAscencion L - 11/28/18 12:13> Vital Signs 11/27/18 12:00 11/27/18 14:11 11/27/18 17:15 Temperature 98.1 F Pulse Rate 80 Respiratory Rate 16 16 16 Blood Pressure 118/56 L Pulse Oximetry 96 11/27/18 20:38 11/28/18 00:31 11/28/18 06:12 Temperature 98.6 F 98.0 F 97.8 F Pulse Rate 77 76 67 Respiratory Rate 20 20 20 Blood Pressure 123/63 106/65 112/55 L Pulse Oximetry 98 98 98 11/28/18 07:30 11/28/18 08:10 Temperature 97.7 F Pulse Rate 78 Respiratory Rate 20 16 Blood Pressure 97/52 L Pulse Oximetry 96 Intake & Output 11/27/18 11/28/18 11/28/18 18:59 06:59 18:59 Intake Total 1550 / 1550 1000 / 1000 1000 / 1000 Balance 1550 / 1550 1000 / 1000 1000 / 1000 Intake: IV 1550 / 1550 1000 / 1000 1000 / 1000 NS Inj 1,000 ML @ 112 mls/hr IV 1550 / 1550 1000 / 1000 1000 / 1000 .CONT .Q8H56M [facility] Rx#:[id number] Other: # Voids 4 Date of Last Bowel Movement 11/27/18 11/27/18 # Bowel Movements 1 <Sasha Hazel Davison - 11/28/18 09:40> Narrative: General: Resting in bed, no distress Skin: No rashes or lesions HEENT: normocephalic, no conjunctivitis, no nasal discharge Neck: Supple, no lymphadenopathy CV: RRR, no murmurs, rubs, gallops, regular pulses, normal cap refill Lungs: CTAB Abdomen: Tender to palpation throughout all quadrants, no rebound tenderness, no guarding, no masses palpated. Old healed scars from prior partial colectomy. Ext: No swelling Neuro: Awake, alert, no distress Psych: fair insight, normal reasoning <EloiselaurieHazel Rivers - 11/28/18 09:40> Assessment and Plan - Assessment (1) Abdominal pain Code(s): R10.9 - Unspecified abdominal pain Status: Acute (2) Ulcerative colitis Code(s): K51.90 - Ulcerative colitis, unspecified, without complications Status: Acute (3) Hematemesis with nausea Code(s): K92.0 - Hematemesis Status: Acute (4) DVT prophylaxis Status: Acute (5) Nutrition, metabolism, and development symptoms Code(s): R63.8 - Other symptoms and signs concerning food and fluid intake Status: Acute <Ascencion Larkin - 11/28/18 12:13> (1) Abdominal pain Code(s): R10.9 - Unspecified abdominal pain Status: Acute Plan: Patient with past medical history of ulcerative colitis status post partial colectomy in 1997 presents with 1 day of 10 out of 10 sharp, colicky, diffuse abdominal pain. History of multiple bowel obstructions x3, most recent was 6 weeks ago at a hospital in [place]. No history of requiring NG tube for obstructions. No PCP or GI. 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 Abnormal dilation of the distal ileum extending to the level of circumferential soft tissue thickening. Findings concerning for malignancy within the region of the rectum. - Declines small bowel follow through - GI is consulted and on board: Recommend flex sigmoidoscopy today - No nausea/vomiting overnight, had bowel movement but still irregular per patient. - Oncology consulted given concern for malignancy on CT. May also just be part of his ulcerative colitis. Will await results from flex sig. - Colorectal surgery consulted. Appreciate recommendations. - CEA/AFP negative. - CBC: Dropping Hb from 13.4 to 11.3 today. Await flex sig results. - CMP: hypokalemia at 3.2. KCL 40 meq ordered. - IV Solumedrol for UC - May benefit from 5-ASA in outpatient setting, needs good GI follow up - Morphine pain scale and breakthrough. - Bowel regimen - Zofran for nausea vomiting. (2) Ulcerative colitis Code(s): K51.90 - Ulcerative colitis, unspecified, without complications Status: Acute Plan: Currently not in any chronic medications. Gastroenterology consulted. Appreciate recommendations. IV Solumedrol for acute exacerbation Would benefit from 5-ASA in outpatient setting (3) Hematemesis with nausea Code(s): K92.0 - Hematemesis Status: Acute Plan: Patient confirms hematemesis x2 before admission No episodes since admission. Zofran every 4 for nausea and vomiting. Continue to monitor. Hemoglobin and hematocrit stable. Follow-up in a.m. (4) DVT prophylaxis Status: Acute Plan: SCDs only. (5) Nutrition, metabolism, and development symptoms Code(s): R63.8 - Other symptoms and signs concerning food and fluid intake Status: Acute Plan: Fluids: Normal saline at 112 mls/hour. Electrolytes: Monitor and replete as needed. Diet: NPO for procedure today. <Hazel Cueto - 11/28/18 10:21> - Attending Attestation The exam, history, and the medical decision-making described in the above note were completed with the assistance of the resident physician. I reviewed and agree with the findings presented. I attest that I had a [id number] encounter with the patient on the same day, and personally performed and documented my assessment and findings in the medical record. I evaluated the patient independently. Abdominal pain improving. Having bowel movements. Benign abdominal exam. Has bowel sounds. Status post flex sig, showed anal stricture, friable tissue, internal hemorrhoids. Biopsy pending. Colorectal surgery consulted. <Ascencion Larkin - 11/28/18 12:13>
[2018-11-28 10:01] LABS: Albumin 2.6 g/dL (3.4-5.0); Anion Gap 9 meq/L (5-15); Aspartate Aminotransferase 33 U/L (15-37); Blood Urea Nitrogen 3 mg/dL (7-18); Calcium 8.1 mg/dL (8.5-10.1); Carbon Dioxide 26.1 meq/L (21.0-32.0); Chloride 108 meq/L (98-107); Glomerular Filtration Rate Greater Than 89 mL/min (>89); Glucose,Random 66 mg/dL (74-106); Potassium 3.2 meq/L (3.5-5.1); Sodium 143 meq/L (136-145)
[2018-11-28 10:02] LABS: Alanine Aminotransferase 29 U/L (12-78)
[2018-11-28 10:04] LABS: Alkaline Phosphatase 35 U/L (45-117); Total Protein 5.5 g/dL (6.4-8.2)
--- NOTE | 2018-11-28 10:08 | GIPROC ---
[facility] [address] [facility]. [facility], [address] FLEXIBLE SIGMOIDOSCOPY PROCEDURE REPORT EXAM DATE: 11/28/2018 PATIENT NAME: Rad Santos MR #: [id number] BIRTHDATE: 1975 ORDER #: [id number] ATTENDING: Hao Almonte MD MOTOR INSTALLER: Mary Pollack Power, Victoria, and Jenni Solano STATUS: inpatient INDICATIONS: The patient is a 43 yr old male here for a flexible sigmoidoscopy due to hematochezia, an abnormal imaging, NOS, and an abnormal CT PROCEDURE PERFORMED: Flexible Sigmoidoscopy with biopsy MEDICATIONS: None and Per Anesthesia. ESTIMATED BLOOD LOSS: None CONSENT: The patient understands the risks and benefits of the procedure and understands that these risks include, but are not limited to: sedation, allergic reaction, infection, perforation and/or bleeding. Alternative means of evaluation and treatment include, among others: physical exam, x-rays, and/or surgical intervention. The patient elects to proceed with this endoscopic procedure. medical equipment was checked for proper function. Hand hygiene and appropriate measures for infection prevention was taken. After the risks, benefits and alternatives of the procedure were thoroughly explained, Informed consent was verified, confirmed and timeout was successfully executed by the treatment team. A digital rectal exam revealed internal hemorrhoids The Pentax [id number] endoscope was introduced through the anus and advanced to the rectum. The prep was fair. The instrument was then slowly withdrawn as the colon was fully examined. COLON FINDINGS: Anal stricture with friability. Biopsied and dilated with finger. Retroflexed views revealed internal hemorrhoid The scope was then completely withdrawn from the patient and the procedure terminated. ADVERSE EVENTS: There were no complications. IMPRESSIONS: 1. Anal stricture with friability. Biopsied and dilated with finger 2. Retroflexed views revealed internal hemorrhoid 3. Revealed internal hemorrhoids RECOMMENDATIONS: 1. Await biopsy results 2. CRS referral RECALL: NONE Hao Almonte MD eSigned: Hao Almonte MD 11/28/2018 10:08 AM cc:
--- NOTE | 2018-11-28 16:44 | MB ---
cc: Rocío Rios MD DATE: 11/28/2018 CHIEF COMPLAINT: Possible anorectal cancer. HISTORY OF PRESENT ILLNESS: The patient is a 43-year-old male with a history of chronic ulcerative colitis. About 20 years ago, he underwent a total proctocolectomy with ileoanal pouch and temporary diverting ileostomy with subsequent resection and reanastomosis of his ileostomy. He has not had health insurance for quite some time, so he has really not had much in the way of followup since that time and has not seen either production team leader or colorectal surgeon. He began having some intermittent bowel obstructions over the last 2 or 3 years, the most recent starting 3 days ago. Just before coming to the hospital, he had abdominal pain, nausea, and vomiting with failure to pass stool. Since being in the hospital, he has had some small diarrhea, but nothing major. CT scan revealed evidence of thickening at the ileoanal anastomosis and Dr. Almonte did a flexible sigmoidoscopy today with biopsy. Per Dr. Almonte, he says that it is indeterminate for whether it is actual cancer or not. Biopsies are pending. Currently since his dilation of his stricture by Dr. Almonte, the patient has been passing fairly significant amounts of stool. PAST MEDICAL HISTORY: As described. PAST SURGICAL HISTORY: 1. Shoulder surgery. 2. Total abdominal colectomy with ileoanal pouch and diverting ileostomy. 3. Resection with reanastomosis of ileostomy. ALLERGIES: NONE. MEDICATIONS: None. REVIEW OF SYSTEMS: Negative for chest pain, shortness of breath, fevers, chills, weight loss, difficulty with mood or mentation, difficulty with mobility. PHYSICAL EXAMINATION: GENERAL: An alert male, who appears comfortable. NEUROLOGIC: Grossly intact. SKIN: Warm and dry. CARDIOVASCULAR: Regular rate. CHEST: Breathing is symmetric bilaterally and nonlabored. ABDOMEN: Soft, nondistended, nontender. He has a midline incision. EXTREMITIES: No edema. LABORATORY DATA: From today shows a white count of 4.6, hemoglobin 11.3, platelets of 211. Chemistry: Sodium of 143, potassium 3.2, chloride is 108, BUN is 3, creatinine is 0.75 and glucose is 66. IMPRESSION: Abnormal CT. Biopsies are pending. PLAN: There are 3 possible scenarios here. One is that it is just a stricture in which case serial dilatation should be adequate for his ongoing care. Second possibility is that it is an anal cancer. If this is an anal cancer, the best case would be radiation with chemotherapy under the Estefany protocol, but I will have to discuss this with Radiation Oncology to see if they would be able to radiate without harming the small bowel pouch. Third case scenario would be rectal cancer. The options there would be to go straight to a resection of the remaining rectal tissue with a permanent end-ostomy versus radiation and chemotherapy followed by either watchful waiting or surgery. I have discussed all these with the patient today, and it will probably be a good 4-5 days before his biopsies are available. I do not see any reason he needs to stay in the hospital. I have given him my card. He is to follow up with me in the office some time in about 7-10 days. Thank you very much for your kind referral. MD PHILOMENA Hilliard/caron , 03:32 PM , 03:39 PM
[2018-11-28 17:25] VITALS: BP 117/63; PULSE 62; TEMP 97.2; O2SAT 100
[2018-11-28 19:03] VITALS: RESP 16
[2018-11-28] MEDS ORDERED: predniSONE 20 MG Tablet PO SCH (21:00)
--- NOTE | 2018-11-29 11:27 | P.DS ---
Date of admission: 11/25/18 08:16 Primary care physician: No Primary Care Physician Brief History from admission: 43 year old male with PMH UC presents for constipation since yesterday at noon and then started having abdominal pain last night at 9 pm. The ab pain was diffuse. Rates the pain a 10/10, stabbing pain, colicky pain. Did not try anything to relieve the pain. This pain has happened in the past, multiple times , last one about a month and a half ago and it was bowel obstruction. Has had 3 bowel obstructions in the past since he had his colon surgery in 1997 (partial colectomy). He also reports vomiting x2 at around 4 AM, and that's what prompted him to go to the hospital. Confirms hematemesis. Last flatus yesterday but has not had any episodes of flatus since being in the ED at 5 am today. Denies any changes in stool caliber or color before this event. Does not see a GI doctor because he is self pay. Dr Resendez in [place] did his surgery in 1997 and he moved down to [facility] in 2016. Has no PCP or GI follow up since his surgery. Received a dose of morphine in the ED which has helped the pain. PMH: UC PSH: Shoulder surgery. partial colectomy 1997 (does not have colostomy bag). A: NKDA Meds: None PSH: Lives in an apartment with his nephew. Denies smoking cigarettes currently but used to smoke years ago. Occasional alcohol use (once every 2-3 weeks). Denies any drugs use. Denies any changes in diet. Flew to [facility] a couple a months ago and flew to [place] a month ago. Currently not sexually active. No history of HIV/Hep C/ STDs. No PCP. Fam Hx: Nephew has Chrons disease. ROS: Denies CP. Confirms SOB before the ambulance arrived but has resolved at this moment. Confirms night sweats for years where he is drenching his bed. Denies any weight loss. Denies any fevers, leg pain,dysuria. Last Colonoscopy years ago. DS: Diagnosis - Discharge Diagnosis (1) Abdominal pain Status: Acute (2) Ulcerative colitis Status: Acute (3) Hematemesis with nausea Status: Acute (4) DVT prophylaxis Status: Acute (5) Nutrition, metabolism, and development symptoms Status: Acute DS: Medications - Discharge Medications Prescriptions: ibuprofen 800 mg PO TID 7 Days #21 tab DS: Summary Hospital Course: Patient with past medical history of ulcerative colitis status post partial colectomy in 1997 presents with 1 day of 10 out of 10 sharp, colicky, diffuse abdominal pain. History of multiple bowel obstructions x3, most recent was 6 weeks ago at a hospital in [place]. CT abdomen showed findings concerning for malignancy within the region of the rectum. GI consulted, and patient underwent a flexible sigmoidoscopy and had biopsies done of the region. He was able to have bowel movements during his admission but still complained of abdominal pain. Colorectal surgery was consulted and recommended to follow up outpatient as they awaited the biopsies of from the flexible sigmoidoscopy. Patient was discharged home and told to follow up with colorectal surgery as outpatient for further management. - Time Spent with Patient Total time spent providing and/or coordinating discharge services: Less than 30 minutes - Quality: VTE Deep Vein Thrombosis/Pulmonary Embolism Present on Admission: No Exam Vital signs: Vital Signs 11/28/18 11:35 11/28/18 11:55 11/28/18 16:00 Temperature 97.6 F 97.2 F L Pulse Rate 74 62 Respiratory Rate 20 16 20 Blood Pressure 112/60 117/63 Pulse Oximetry 99 100 11/28/18 19:03 Temperature Pulse Rate Respiratory Rate 16 Blood Pressure Pulse Oximetry Intake & Output 11/28/18 11/29/18 11/29/18 18:59 06:59 18:59 Intake Total 2150 / 2150 Balance 2150 / 2150 Intake: IV 1999 NS Inj 1,000 ML @ 112 mls/hr IV 1999 .CONT .Q8H56M [facility] Rx#:[id number] Anesthesia Amount 150 / 150 Other: Date of Last Bowel Movement 11/28/18 11/27/18 # Bowel Movements 1 Narrative: General: Resting in bed, no distress Skin: No rashes or lesions HEENT: normocephalic, no conjunctivitis, no nasal discharge Neck: Supple, no lymphadenopathy CV: RRR, no murmurs, rubs, gallops, regular pulses, normal cap refill Lungs: CTAB Abdomen: Tender to palpation throughout all quadrants, no rebound tenderness, no guarding, no masses palpated. Old healed scars from prior partial colectomy. Ext: No swelling Neuro: Awake, alert, no distress Psych: fair insight, normal reasoning Results Procedures completed during hospitalization: Flex sigmoidoscopy in 11/28 - Impressions ITS Impressions Abdomen/Pelvis CT 11/25/18 06:56 CONCLUSION: 1. 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 There is abnormal dilation of the distal ileum extending to the level of circumferential soft tissue thickening. Findings are concerning for possible malignancy within the region of the rectum. Small lymph nodes are seen within the mesentery. 2. Benign-appearing hepatic hemangiomas. Discharge Plan - Discharge Disposition Patient Disposition: Discharge Home - Discharge Condition Condition: Stable - Discharge Order Discharge Orders: Discharge Order (Routine); Ordered 11/28/18 Ordered By: Ascencion Zuniga ED Use Only Admit Order (Routine); Ordered 11/25/18 Ordered By: Brianna Pacheco - Discharge Details Anticipated Discharge Date: 11/25/18 Discharge Comment: Can be discharged as long as he tolerates his regular diet tonight - Physicians Team Primary Care Provider: Primary Care Mireillei,Freda Attending Provider: Ascencion Larkin Other Providers: Fidel Ang MD ; Wild Hall MD ; Rocío Rios MD
== END 2018-11-28 20:55 | disposition home or self-care (01) | DRG 389 ==
LOC: NEPE 05:48 → NEDA 08:16 → N06 10:15 → N05 11-27 11:49
PROVIDERS: ADMIT Family Medicine; ATTEND Family Medicine
CPT/HCPCS: 74177; 80048; 80053; 81001; 82105; 82378; 83690; 83735; 85025; 85027; 86301; 88305; 90761; 90774; 90775; 90776; 90784; 96361; 96374; 96375; 96376; 99285; C8952; J2270; J2405; J2920; J7030; J7120; Q9967